=== PATIENT | male | born 1955 | race Caucasian/White ===

== ENCOUNTER 2021-10-29 18:08 | Observation (INO) | payer MEDICARE, OTHER ==
--- NOTE | 2021-10-29 18:38 | ED ---
General Adult HPI - General Stated complaint: chest pain Time Seen by Provider: 10/29/21 18:08 Source: patient, RN notes reviewed, old records reviewed - History of Present Illness Initial comments: This is a 66-year-old male who presents to the emergency department from [facility]. Patient states prior to going to [facility] he was shoveling his driveway started having some chest pain shortness of breath and he sat down and the pain did not go away so he called 911. Patient states he still has some chest pain currently. At [facility] did a full workup and started the patient heparin his troponin was negative his EKG did not show any significant past elevation or depression. Patient denies any recent fever chills or cough per patient denies being short of breath currently. Patient denies any abdominal pain patient denies nausea vomiting diarrhea. Patient denies lightheadedness or dizziness. - Related Data Home Medications Medication Instructions Recorded Confirmed ARIPiprazole [Abilify] 5 mg PO DAILY 10/29/21 10/29/21 Atorvastatin [Lipitor] 20 mg PO HS 10/29/21 10/29/21 Losartan Potassium 50 mg PO DAILY 10/29/21 10/29/21 Pioglitazone [Actos] 15 mg PO DAILY 10/29/21 10/29/21 Pramipexole [Mirapex] 0.5 mg PO TID 10/29/21 10/29/21 Propranolol HCl [Propranolol HCl 60 mg PO DAILY 10/29/21 10/29/21 ER] Sertraline [Zoloft] 100 mg PO DAILY 10/29/21 10/29/21 metFORMIN HCL 500 mg PO BID-W/MEALS 10/29/21 10/29/21 Allergies Allergy/AdvReac Type Severity Reaction Status Date / Time No Known Allergies Allergy Verified 10/29/21 18:51 Review of Systems ROS Statement: Those systems with pertinent positive or pertinent negative responses have been documented in the HPI. ROS Other: All systems not noted in ROS Statement are negative. General Exam - General Exam Comments Initial Comments: GENERAL: Patient is well-developed and well-nourished. Patient is nontoxic and well- hydrated and is in mild distress. ENT: Neck is soft and supple. No significant lymphadenopathy is noted. Oropharynx is clear. Moist mucous membranes. Neck has full range of motion without eliciting any pain. EYES: The sclera were anicteric and conjunctiva were pink and moist. Extraocular movements were intact and pupils were equal round and reactive to light. Eyelids were unremarkable. PULMONARY: Unlabored respirations. Good breath sounds bilaterally. No audible rales rhon chi or wheezing was noted. CARDIOVASCULAR: There is a regular rate and rhythm without any murmurs gallops or rubs. ABDOMEN: Soft and nontender with normal bowel sounds. SKIN: Skin is clear with no lesions or rashes and otherwise unremarkable. NEUROLOGIC: Patient is alert and oriented x3. Cranial nerves II through XII are grossly intact. Motor and sensory are also intact. Normal speech, volume and content. Symmetrical smile. MUSCULOSKELETAL: Normal extremities with adequate strength and full range of motion. LYMPHATICS: No significant lymphadenopathy is noted PSYCHIATRIC: Normal psychiatric evaluation. Course Vital Signs 10/29/21 18:22 Temperature 98.0 F Pulse Rate 64 Respiratory 18 Rate Blood Pressure 133/79 O2 Sat by Pulse 98 Oximetry Medical Decision Making - Medical Decision Making EKG shows normal sinus rhythm at 60 bpm MI interval 270 QRS 122 QT interval 4:30 QTC is 436 per patient's EKG shows no ST segment elevation or depression. Patient has a right bundle branch block. I reviewed the patient's paperwork and chest x-ray from [facility]. I also restarted the heparin here. I repeated troponin and an EKG EKG did not show any acute abnormalities. And troponin was normal. I spoke with Dr. Pringle he agreed to admit the patient admitted the patient I consult to cardiology. - Lab Data Lab Results 10/29/21 Range/Units 18:40 Troponin I <0.012 (0.000-0.034) ng/mL Disposition Clinical Impression: Chest pain Disposition: ADMITTED IP TO THIS HOSP Referrals: Ezekiel Ramirez MD [Primary Care Provider] - 1-2 days Time of Disposition: 19:31
[2021-10-29] MEDS ORDERED: HEPARIN SOD,PORK IN 0.45% NACL 25,000 UNIT in 0.45% NACL 1 250ML.BAG IV SCH (18:45)
[2021-10-29] MEDS ORDERED: NITROGLYCERIN SL TABS 0.4 MG TAB SUBLINGUAL PRN (19:31)
[2021-10-29] MEDS ORDERED: ACETAMINOPHEN TAB 325 MG TAB PO PRN (21:57)
[2021-10-29] MEDS ORDERED: LACTULOSE 20 GM/30 ML CUP PO PRN (21:57)
[2021-10-29] MEDS ORDERED: NALOXONE 0.4 MG/ML 1 ML VIAL IV PRN (21:57)
[2021-10-29] MEDS ORDERED: MELATONIN 3 MG TABLET PO PRN (22:00)
[2021-10-29] MEDS ORDERED: ATORVASTATIN 20 MG TAB PO SCH (22:00)
[2021-10-29] MEDS ORDERED: CALCIUM CARBONATE 500 MG CHEWABLE PO PRN (22:00)
[2021-10-29] MEDS ORDERED: ONDANSETRON 4 MG/2 ML VIAL IVP PRN (22:00)
[2021-10-29] MEDS: PRAMIPEXOLE 0.5 MG TAB PO SCH (23:35)
[2021-10-29] MEDS: NITROGLYCERIN OINT 1 INCH/GM PACKET TOPICAL SCH (23:36)
[2021-10-30] MEDS ORDERED: HEPARIN SODIUM 1,000 UN/ML (10ML VL) IV PRN (02:17)
[2021-10-30] MEDS: NITROGLYCERIN OINT 1 INCH/GM PACKET TOPICAL SCH ×2 (05:03→12:58)
[2021-10-30] MEDS ORDERED: HEPARIN SODIUM,PORCINE 10,000 UNIT in SODIUM CHLORIDE 0.9% 1,000 ML IRRIGATION PRN (07:00)
[2021-10-30] MEDS ORDERED: HEPARIN SODIUM,PORCINE 2,500 UNIT in SODIUM CHLORIDE 0.9% 250 ML IRRIGATION PRN (07:00)
[2021-10-30] MEDS ORDERED: metFORMIN 500 MG TAB PO SCH (07:30)
[2021-10-30 07:40] LABS: Glucose,Whole Blood 208 mg/dL (75-99)
[2021-10-30] MEDS ORDERED: ALPRAZolam 0.25 MG TAB PO PRN (08:58)
[2021-10-30] MEDS ORDERED: ATORVASTATIN 80 MG TAB PO STA (08:58)
[2021-10-30] MEDS ORDERED: ASPIRIN 325 MG TAB PO SCH (09:00)
--- NOTE | 2021-10-30 09:13 | P.CRDCN ---
History of Present Illness History of present illness: This is a 66 year old male with a past medical history of type 2 diabetes, hypertension, dyslipidemia, recent diagnosis of Parkinson's, alcohol abuse quit September 2019, former smoker. 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 Patient was transferred from [facility] due to concerns for chest pain. He states yesterday around 4PM he started shoveling the snow, he had acute onset of chest discomfort. Describes it as "pins and needles". It was aggravated by activity. Non-radiating. He states he had associated shortness of breath and lightheadedness. EMS was called. He states his pain lasted over an hour. He denies any diaphoresis, nausea, vomiting, syncope or loss of consciousness. He states he does occasionally get this chest pain with activity for sometime now. He denies any history of GA, CAD or stroke. He used to smoke cigarrettes quit 20+ years ago. He quit drinking September 2019 at that time prior he was drinking a fifth of whiskey a day. He denies any illicit drug use. He does not know his family history. At [facility], EKG revealed sinus rhythm, heart rate 73, right bundle-branch block. Labs reveal troponin negative, sodium 135, potassium 4.9, BUN 17, serum creatinine 1.0, WBC 7.6, hemoglobin 14.7, platelets 180. Chest x-ray report revealed no acute cardiopulmonary process. Patient was started on IV heparin and transferred to [facility] EKG reveals sinus rhythm, heart rate 62, right bundle-branch block. Repeat EKG this morning revealed sinus rhythm, heart rate 61, right bundle branch block, some ST depression in leads V2 and V3 Telemetry tracings indicate sinus mechanism, heart rates 6070s. Laboratory reviewed, troponin negative 3 Current home medications include Zoloft, atorvastatin 20 mg nightly, metformin, propanolol 60 mg daily, Actos 15mg daily, losartan 50 mg daily, Abilify 5 mg daily REVIEW OF SYSTEMS At the time of my exam: CONSTITUTIONAL: Denies fever or chills. CARDIOVASCULAR: Denies chest pain, shortness of breath, orthopnea, PND or palpitations. RESPIRATORY: Denies cough. GASTROINTESTINAL: Denies abdominal pain, diarrhea, constipation, nausea or vomiting. MUSCULOSKELETAL: Denies myalgias. NEUROLOGIC: Denies numbness, tingling, headache or weakness. ENDOCRINE: Denies fatigue, weight change, polydipsia or polyurina. GENITOURINARY: Denies burning, hematuria or urgency with micturation. HEMATOLOGIC: Denies history of anemia or bleeding. PHYSICAL EXAMINATION Blood pressure 155/79, heart rate 60, afebrile, saturations 98% on room air CONSTITUTIONAL: No apparent distress. HEENT: Head is normocephalic. Pupils are equal, round. Sclerae anicteric. Mucous membranes of the mouth are moist. No JVD. No carotid bruit. CHEST EXAMINATION: Lungs are clear to auscultation. No chest wall tenderness is noted on palpation or with deep breathing. HEART EXAMINATION: Regular rate and rhythm. S1, S2 heard. Systolic ejection murmur at apex. No gallops or rub. ABDOMEN: Soft, nontender. Positive bowel sounds. EXTREMITIES: 2+ peripheral pulses, no lower extremity edema and no calf tenderness. SKIN: warm, dry NEUROLOGIC EXAMINATION: Patient is awake, alert and oriented x3. ASSESSMENT Unstable angina Type 2 Diabetes Hypertension Dyslipidemia Recent diagnosis of Parkinson's History of alcohol abuse quit in September 2019 Former tobacco use PLAN -Recommend cardiac catheterization, patient is agreeable -I have discussed the risks, benefits and alternative therapies for the above- mentioned procedure and for both sedation/analgesia as well as necessary blood product administration, if indicated, as they pertain to this patient. The patient has indicated understanding and acceptance of the risks and procedures discussed. Questions have been answered appropriately and he is agreeable to move forward with the above-stated procedure. -Obtain 2D echocardiogram and doppler study to assess cardiac structure and function. -Lipid panel -Plan for cardiac catheterization with Dr. Cherry today. -Further recommendations based on clinical course Thank you kindly for this consultation. I have personally seen and examined the patient, performed the documentation and the assessment and plan as written. Number of minutes spent on the visit: [ ]. Past Medical History Past Medical History: Diabetes Mellitus, Hyperlipidemia History of Any Multi-Drug Resistant Organisms: None Reported Past Surgical History: Hernia Repair Past Anesthesia/Blood Transfusion Reactions: No Reported Reaction Past Psychological History: Anxiety, Depression, Schizophrenia Smoking Status: Former smoker Past Alcohol Use History: Daily Past Drug Use History: None Reported Medications and Allergies Home Medications Medication Instructions Recorded Confirmed Type ARIPiprazole [Abilify] 5 mg PO DAILY 10/29/21 10/29/21 History Atorvastatin [Lipitor] 20 mg PO HS 10/29/21 10/29/21 History Losartan Potassium 50 mg PO DAILY 10/29/21 10/29/21 History Pioglitazone [Actos] 15 mg PO DAILY 10/29/21 10/29/21 History Pramipexole [Mirapex] 0.5 mg PO TID 10/29/21 10/29/21 History Propranolol HCl [Propranolol HCl 60 mg PO DAILY 10/29/21 10/29/21 History ER] Sertraline [Zoloft] 100 mg PO DAILY 10/29/21 10/29/21 History metFORMIN HCL 500 mg PO BID-W/MEALS 10/29/21 10/29/21 History Allergies Allergy/AdvReac Type Severity Reaction Status Date / Time No Known Allergies Allergy Verified 10/29/21 18:51 Physical Exam Vitals: Vital Signs Temp Pulse Pulse Resp BP BP Pulse Ox 10/30/21 00:59 97.4 F L 72 18 143/80 96 10/29/21 20:16 97.7 F 64 20 146/78 100 10/29/21 19:55 72 18 123/84 95 10/29/21 18:22 98.0 F 64 18 133/79 98 Intake and Output 10/29/21 10/30/21 10/30/21 22:59 06:59 14:59 Intake Total 65.234 Balance 65.234 Intake: Intake, IV Titration 65.234 Amount Heparin Sod,Pork in 0.45% 65.234 NaCl 25,000 unit In 0.45 % NaCl 1 250ml.bag @ 12 UNITS/KG/HR 9.253 mls/hr IV .Q24H [facility] Rx#: [id number] Other: Voiding Method Toilet # Voids 1 1 Weight 77.111 kg Results Cardiac Enzymes 10/29/21 10/29/21 10/30/21 Range/Units 18:40 19:52 01:28 Troponin I <0.012 <0.012 <0.012 (0.000-0.034) ng/mL Coagulation 10/30/21 Range/Units 01:28 APTT 37.6 H (22.0-30.0) sec Current Medications Generic Name Dose Route Start Last Admin Trade Name Freq PRN Reason Stop Dose Admin Acetaminophen 650 mg 10/29/21 21:57 Acetaminophen Tab 325 Mg Tab PO Q6HR PRN Mild Pain or Fever > 100.5 Aripiprazole 5 mg 10/30/21 09:00 Aripiprazole 5 Mg Tab PO DAILY [facility] Aspirin 325 mg 10/30/21 09:00 Aspirin 325 Mg Tab PO DAILY [facility] Atorvastatin Calcium 20 mg 10/29/21 22:00 10/29/21 23:35 Atorvastatin 20 Mg Tab PO 20 mg HS [facility] Administration Calcium Carbonate/Glycine 1,000 mg 10/29/21 22:00 Calcium Carbonate 500 Mg Chewable PO Q4HR PRN Dyspepsia Heparin Sodium (Porcine) 0 unit 10/30/21 02:17 10/30/21 02:31 Heparin Sodium 1,000 Un/Ml (10ml Vl) IV 1,927 unit PER PROTOCOL PRN Administration Low PTT Protocol Heparin Sodium/Sodium Chloride 250 mls @ 9.253 mls/hr 10/29/21 18:45 03 02:32 25,000 unit/ Sodium Chloride IV 14 units/kg/hr .Q24H [facility] 10.796 mls/hr Titration Protocol 12 UNITS/KG/HR Lactulose 20 gm 10/29/21 21:57 Lactulose 20 Gm/30 Ml Cup PO DAILY PRN Constipation Losartan Potassium 50 mg 10/30/21 09:00 Losartan 50 Mg Tab PO DAILY [facility] Melatonin 3 mg 10/29/21 22:00 Melatonin 3 Mg Tablet PO HS PRN Insomnia Metformin HCl 500 mg 10/30/21 07:30 Metformin 500 Mg Tab PO BID-W/MEALS [facility] Naloxone HCl 0.2 mg 10/29/21 21:57 Naloxone 0.4 Mg/Ml 1 Ml Vial IV Q2M PRN Opioid Reversal Nitroglycerin 0.4 mg 10/29/21 19:31 Nitroglycerin Sl Tabs 0.4 Mg Tab SUBLINGUAL Q5M PRN Chest Pain Nitroglycerin 1 inch 10/30/21 00:00 10/30/21 05:03 Nitroglycerin Oint 1 Inch/Gm Packet TOPICAL Not Given Q6HR [facility] Ondansetron HCl 4 mg 10/29/21 22:00 Ondansetron 4 Mg/2 Ml Vial IVP Q8HR PRN Nausea And Vomiting Pioglitazone HCl 15 mg 10/30/21 09:00 Pioglitazone 15 Mg Tab PO DAILY [facility] Pramipexole Dihydrochloride 0.5 mg 10/29/21 22:00 10/29/21 23:35 Pramipexole 0.5 Mg Tab PO 0.5 mg TID [facility] Administration Propranolol HCl 60 mg 10/30/21 09:00 Propranolol La 60 Mg Cap.Sa.24h PO DAILY [facility] Sertraline HCl 100 mg 10/30/21 09:00 Sertraline 100 Mg Tab PO DAILY [facility] Intake and Output 10/29/21 10/30/21 10/30/21 22:59 06:59 14:59 Intake Total 65.234 Balance 65.234 Intake: Intake, IV Titration 65.234 Amount Heparin Sod,Pork in 0.45% 65.234 NaCl 25,000 unit In 0.45 % NaCl 1 250ml.bag @ 12 UNITS/KG/HR 9.253 mls/hr IV .Q24H [facility] Rx#: [id number] Other: Voiding Method Toilet # Voids 1 1 Weight 77.111 kg
[2021-10-30] MEDS: PRAMIPEXOLE 0.5 MG TAB PO SCH ×3 (09:45→20:42)
[2021-10-30] MEDS: SERTRALINE 100 MG TAB PO SCH (09:45)
[2021-10-30] MEDS: ARIPiprazole 5 MG TAB PO SCH (09:45)
[2021-10-30] MEDS: LOSARTAN 50 MG TAB PO SCH (09:45)
[2021-10-30] MEDS: PROPRANOLOL LA 60 MG CAP.SA.24H PO SCH (09:45)
[2021-10-30] MEDS: SODIUM CHLORIDE 0.9% 1,000 ML in EMPTY BAG 1 BAG IV SCH ×2 (09:46→17:00)
[2021-10-30 09:56] LABS: Glucose,Whole Blood 248 mg/dL (75-99)
[2021-10-30] MEDS ORDERED: IV FLUID CONTINUATION 1,000 ML IV ONE ×2 (10:19→12:06)
[2021-10-30] MEDS ORDERED: VERAPAMIL 2.5 MG/ML 2 ML AMP ONE (10:19)
[2021-10-30] MEDS ORDERED: LIDOCAINE 1% INJ 10MG/ML (20 ML MDV) ONE (10:19)
[2021-10-30] MEDS ORDERED: HEPARIN SODIUM 1,000 UN/ML (10ML VL) ONE (10:34)
[2021-10-30] MEDS ORDERED: fentaNYL (PF) 50 MCG/ML 2 ML AMP ONE (10:34)
[2021-10-30] MEDS ORDERED: LIDOCAINE 1% INJ 10MG/ML (20 ML MDV) SQ ONE (10:41)
[2021-10-30] MEDS ORDERED: fentaNYL (PF) 50 MCG/ML 2 ML AMP IV ONE (10:41)
[2021-10-30] MEDS: MIDAZOLAM 2 MG/2 ML VIAL IV ONE ×2 (10:41→10:46)
[2021-10-30] MEDS ORDERED: VERAPAMIL SYRINGE (5 MG/10 ML) INTRAARTER ONE ×2 (10:45→10:47)
[2021-10-30] MEDS: HEPARIN SODIUM 1,000 UN/ML (10ML VL) IV ONE ×4 (10:53→12:01)
[2021-10-30] MEDS ORDERED: PRASUGREL 10 MG TAB ONE (11:25)
[2021-10-30] MEDS ORDERED: PRASUGREL 10 MG TAB PO ONE (11:31)
--- NOTE | 2021-10-30 11:33 | CC ---
CARDIAC CATHETERIZATION REPORT INDICATION: Unstable angina. PROCEDURE NOTE: After obtaining informed consent, left heart catheterization and coronary angiogram were performed via the right radial artery using a size 3-1/2 Devika catheter for the right coronary artery and 3-1/2 and 4 Devika for the left coronary system. More selective images of the circumflex were obtained using a size 4 Devika catheter. The pigtail was used to obtain hemodynamics. Patient tolerated the procedure well without any obvious immediate complications. The right radial artery access was obtained using a micropuncture needle. Catheters and wires were floated into the ascending aorta under fluoroscopic guidance. Five mg of verapamil and 2000 units of heparin was given as per protocol. 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 Patient tolerated the procedure well without any obvious immediate complications. FINDINGS: HEMODYNAMICS: Left ventricular end-diastolic pressure is 12 mm. There is no significant gradient across the aortic valve. LEFT VENTRICULOGRAM: Left ventriculogram was not performed. ANGIOGRAPHIC DATA: Left main coronary artery. Left main coronary artery is a short vessel; appears mildly calcified but is free of significant stenosis. It divides into a large codominant circumflex coronary artery and LAD. LAD shows two areas of stenosis in the proximal portion. There is a 70% to 80% stenosis very close to the ostium, and further distally there is a focal 70% to 80% stenosis. Circumflex coronary artery shows a 40% to 50% stenosis in its mid portion. It gives off a high OM branch that is a small-caliber vessel and appears diffusely diseased. Right coronary artery probably has spasm involving the proximal and middle third but shows mild nonobstructive disease. CONCLUSIONS: 1. Focal significant stenosis involving the proximal one third of the LAD with two areas of segmental stenosis. 2. Moderate diffuse disease involving the high OM branch, a 40% to 50% stenosis involving the [place] circumference. 3. Mild nonobstructive disease involving the right coronary artery. PLAN: I am going to have Dr. Parekh review the angiographic data and advise on catheter- based revascularization of the LAD. MMBEBETOL / NORIN: [id number] /
[2021-10-30] MEDS ORDERED: NITROGLYCERIN 1000MCG/10ML SYRINGE INTRACORON ONE (11:35)
[2021-10-30] MEDS: NITROGLYCERIN 1000MCG/10ML SYRINGE INTRACORON ONE ×2 (12:01→12:17)
[2021-10-30] MEDS ORDERED: IOPAMIDOL-370 125ML BTL INJ ONE (12:02)
[2021-10-30] MEDS ORDERED: SODIUM CHLORIDE 0.9% 500 ML 500 ML IV ONE (12:06)
[2021-10-30] MEDS ORDERED: IOPAMIDOL-370 100ML BTL INJ ONE (12:23)
[2021-10-30] MEDS ORDERED: RX INFO: IV CONTRAST WAS GIVEN 1 EACH MISC MISCELLANE PRN (13:13)
[2021-10-30] MEDS ORDERED: MAG HYDROX/AL HYDROX/SIMETH 30 ML CUP PO PRN (13:13)
[2021-10-30] MEDS ORDERED: ATROPINE SULFATE 0.1 MG/ML 10ML SYRINGE IV PRN (13:13)
[2021-10-30] MEDS ORDERED: ZOLPIDEM 5 MG TAB PO PRN (13:13)
[2021-10-30] MEDS ORDERED: SODIUM CHLORIDE 0.9% 1,000 ML in EMPTY BAG 1 BAG IV SCH (13:15)
--- NOTE | 2021-10-30 14:00 | P.PRCINT ---
Percutaneous Coronary Int. - Percutaneous Coronary Intervention Percutaneous Coronary Intervention: PROCEDURES PERFORMED: Left coronary angiography, PCI proximal LAD with overlapping 3.0 x 18mm and 2.75 x 12mm Xience DONNA, iFR LAD, iFR circumflex INDICATION: Chest pain concerning for unstable angina HISTORY: Patient is a pleasant 66 year old male with DM2, prior tobacco abuse and alcohol abuse. He has been having new onset chest pain concerning for unstable angina and therefore diagnostic heart catheterization was performed which showed obstructive disease of the LAD and moderate disease of the circumflex. I was asked to evaluate for PCI. PROCEDURE: After the risks, benefits and alternatives of the above mentioned procedure explained in detail with the patient, informed consent was obtained. Patient had been taken to the catheterization lab and prepped and draped in usual fashion. A right radial sheath had already been placed. A 6Fr CLS 3.0 guide was used to engage the left main. Heparin was given for ACT > 250. The decision was made to perform iFR of both the LAD and circumflex. Prior diagnsotic images the 5Fr catheter was deep seated and possible component of spasm. A 0.014 BMW wire was placed in the distal LAD and a second 0.014 BMW wire was advanced into the circumflex allowing for better seating of the guide. Nitro was given without much change of the lesions. A 0.014 pressure wire was advanced and normalized. This was advanced into the mid circumflex and was noted to be normal at 0.97. Next the pressure wire was redirected into the mid to distal LAD and was noted to be abnormal at 0.78. The decision was made to perform PCI of the proximal LAD. Predilation was performed with a 2.25 x 12mm balloon. A 2.75 x 12mm Xience DONNA was advanced into the more distal lesion and deployed. Next a 3.0 x 18mm Xience DONNA was placed at the origin of the LAD and deployed, overlapping with the more distal stent. The overlap was post dilated with the 3.0 balloon. The wire was pulled and final angiograms were performed. Pre intervention there was tandem 70% and 80% stenoses and [place] 3 flow and post intervention there was <10% stenosis with [place] 3 flow and no dissection noted. The guide was removed. The right radial sheath was removed and a TR band was placed with hemostasis achieved. The patient tolerated the procedure well. Patient was transported back to the post catheterization holding area in stable condition. Conscious Sedation: Patient was monitored under the direct supervision of vision of myself for conscious sedation using Versed and fentanyl for a total duration of 59 minutes SELECTIVE CORONARY ARTERIOGRAPHY: LEFT MAIN: The left main is large caliber, short vessel with no significant stenosis. It trifurcates into the LAD, a small caliber ramus and circumflex. LEFT ANTERIOR DESCENDING CORONARY ARTERY: The LAD is large caliber and wraps a round to the apex. There are tandem 70% proximal and 80% proximal LAD stenoses. Otherwise there is a mid LAD 30-40% lesion and mild luminal irregularities. RAMUS INTERMEDIUS: The ramus is a small caliber vessel with proximal 40% stenosis. LEFT CIRCUMFLEX CORONARY ARTERY: The left circumflex is large caliber and supplies the PDA and is the dominant vessel. There is a mid circumflex 60-70% stenosis. At this level there is a small caliber OM1 which has a proximal 90% stenosis. RIGHT CORONARY ARTERY: The right coronary artery was not imaged however known to be small caliber and nondominant with diffuse mild to moderate disease. FINAL IMPRESSION: 1. CAD as described above s/p PCI proximal LAD with overlapping 3.0 x 18mm and 2.75 x 12mm Xience DONNA 2. Residual mid circumflex 60-70% stenosis (iFR normal) and 90% small caliber OM1 disease. PLAN: 1. Aggressive risk factor modification per most recent ACC/AHA guidelines. 2. Continue dual antiplatelets for 12 months. 3. Would treat circumflex and OM1 disease medically unless patient has recurrent angina.
[2021-10-30] MEDS: ALPRAZolam 0.5 MG TAB PO PRN ×2 (14:02→20:43)
[2021-10-30 14:57] VITALS: BMI 25.1
--- NOTE | 2021-10-30 15:13 | XR ---
EXAMINATION TYPE: XR chest 2V DATE OF EXAM: 10/30/2021 COMPARISON: 09/19/2010 HISTORY: 66-year-old male with chest pain, heart catheter today. TECHNIQUE: Frontal and lateral views FINDINGS: Heart normal size. Mild hazy lower lung densities likely areas of atelectasis. No pneumothorax. No co nsolidation in the upper and mid lungs. No pleural effusion. IMPRESSION: Some hazy density in the lower lungs likely areas of atelectasis. Follow-up as clinically indicated.
[2021-10-30 15:46] LABS: LDL Cholesterol,Calculated 82.7 mg/dL (0.0-131.0)
--- NOTE | 2021-10-30 16:13 | P.HPIM ---
History of Present Illness H&P Date: 10/30/21 Chief Complaint: Chest pain This is a pleasant 66-year-old patient, was chronic stable medical conditions include diabetes mellitus, hyperlipidemia, Parkinson's., Schizophrenia, anxiety depression. Patient at the baseline is unsteady on his gait. Has to hold onto things. Yesterday around 3 PM patient developed pain across the chest. When he was shoveling snow. It became more prominent. There was no perspiration. Slight dizziness. Some shortness of breath. No radiation. Patient called EMS and after about 3 years when he got the nitroglycerin symptoms went away. Troponins were negative. Patient this morning underwent cardiac catheterization diagnostic by Dr. Juancarlos Valentino followed by angioplasty stenting to proximal LAD with a DONNA. Patient also admits circumflex 60-70% stenosis the latter which is to be treated medically. Postprocedure no chest pain just tired. Review of systems: GEN.: Tired EYES: None HEENT: None NECK: None RESPIRATORY: None CARDIOVASCULAR: As above GASTROINTESTINAL: None GENITOURINARY: None MUSCULOSKELETAL: None LYMPHATICS: None HEMATOLOGICAL: None PSYCHIATRY: Anxious NEUROLOGICAL: Baseline unsteady gait and some tremors Past medical history to include: Diabetes, hyperlipidemia, anxiety, depression, schizophrenia, Parkinson's Social history: Lives alone. Retired from [employer]. No history of smoking or alcohol. Family history: Reviewed, noncontributory to presentation Physical examination: VITAL SIGNS: 97.6, 60, 18, 155/79, 98% room air GENERAL: BMI 25.1, laying in bed, awake, comfortable. EYES: Pupils equal. Conjunctiva normal. HEENT: External appearance of nose and ears normal, oral cavity grossly normal. NECK: JVD not raised; masses not palpable. HEART: First and second heart sounds are normal; no edema. LUNGS: Respiratory rate normal; clear to auscultation. ABDOMEN: Soft, nontender, liver spleen not palpable, no masses palpable. PSYCH: Alert and oriented x3; mood and affect anxiousl. MUSCULOSKELETAL:No Clubbing/cyanosis;muscles-grossly intact NEUROLOGICAL: Cranial nerves grossly intact; no facial asymmetry, power and sensation grossly intact. LYMPHATICS: No lymph nodes palpable in the axilla and neck INVESTIGATIONS, reviewed in the clinical context: Troponin I 3 negative LDL 82.7 triglycerides 371 EKG tracing personally reviewed by me-normal sinus rhythm. Right bundle branch block Chest x-ray film personally reviewed by me-some haziness/chronic infiltrative basis Assessment and plan: -Unstable angina in a patient with cardiac risk factors included diabetes, hyperlipidemia. Troponins were negative. Patient underwent cardiac catheterization Was given aspirin. -CAD with stent to LAD Patient has a 60-70% lesion to mid circumflex. Normal iFR Aspirin, Lipitor, Effient -IV heparin monitoring Follow PTT -Hyperlipidemia Lipitor 20 mg daily at bedtime -Diabetes mellitus type 2 Actos 50 mg daily. Hold metformin. Accu-Cheks and sliding scale insulin -Idiopathic Parkinson's disease Mirapex 0.5 mg by mouth 3 times a day -Schizophrenia Abilify 5 mg a day -Depression not otherwise specified Zoloft 100 mg daily Aspirin, Effient. Home medications resumed. IV heparin. Telemetry. Care was discussed with the patient. Follow with cardiology Past Medical History Past Medical History: Diabetes Mellitus, Hyperlipidemia History of Any Multi-Drug Resistant Organisms: None Reported Past Surgical History: Hernia Repair Past Anesthesia/Blood Transfusion Reactions: No Reported Reaction Past Psychological History: Anxiety, Depression, Schizophrenia Smoking Status: Former smoker Past Alcohol Use History: Daily Past Drug Use History: None Reported Medications and Allergies Home Medications Medication Instructions Recorded Confirmed Type ARIPiprazole [Abilify] 5 mg PO DAILY 10/29/21 10/29/21 History Atorvastatin [Lipitor] 20 mg PO HS 10/29/21 10/29/21 History Losartan Potassium 50 mg PO DAILY 10/29/21 10/29/21 History Pioglitazone [Actos] 15 mg PO DAILY 10/29/21 10/29/21 History Pramipexole [Mirapex] 0.5 mg PO TID 10/29/21 10/29/21 History Propranolol HCl [Propranolol HCl 60 mg PO DAILY 10/29/21 10/29/21 History ER] Sertraline [Zoloft] 100 mg PO DAILY 10/29/21 10/29/21 History metFORMIN HCL 500 mg PO BID-W/MEALS 10/29/21 10/29/21 History Allergies Allergy/AdvReac Type Severity Reaction Status Date / Time No Known Allergies Allergy Verified 10/29/21 18:51 Physical Exam Vitals: Vital Signs Temp Pulse Pulse Resp BP BP Pulse Ox 10/30/21 07:00 97.6 F 60 18 155/79 98 10/30/21 00:59 97.4 F L 72 18 143/80 96 10/29/21 20:16 97.7 F 64 20 146/78 100 10/29/21 19:55 72 18 123/84 95 10/29/21 18:22 98.0 F 64 18 133/79 98 Intake and Output 10/29/21 10/30/21 10/30/21 22:59 06:59 14:59 Intake Total 65.234 Balance 65.234 Intake: Intake, IV Titration 65.234 Amount Heparin Sod,Pork in 0.45% 65.234 NaCl 25,000 unit In 0.45 % NaCl 1 250ml.bag @ 12 UNITS/KG/HR 9.253 mls/hr IV .Q24H [facility] Rx#: [id number] Other: Voiding Method Toilet Toilet # Voids 1 1 Weight 77.111 kg Results Labs: Abnormal Lab Results - Last 24 Hours (Table) 10/30/21 10/30/21 10/30/21 Range/Units 01:28 07:38 07:56 APTT 37.6 H 55.9 H (22.0-30.0) sec POC Glucose (mg/dL) 208 H (75-99) mg/dL 10/30/21 Range/Units 09:54 APTT (22.0-30.0) sec POC Glucose (mg/dL) 248 H (75-99) mg/dL
[2021-10-30] MEDS: PIOGLITAZONE 15 MG TAB PO SCH (17:00)
[2021-10-30 17:05] LABS: Glucose,Whole Blood 243 mg/dL (75-99)
[2021-10-30] MEDS: INSULIN ASPART (NovoLOG) 100 UNIT/ML VIAL SQ SCH ×2 (17:37→20:38)
[2021-10-30 20:27] LABS: Glucose,Whole Blood 224 mg/dL (75-99)
[2021-10-31 07:27] VITALS: BP 146/74; PULSE 54; RESP 16; TEMP 97.8
[2021-10-31 07:29] LABS: Glucose,Whole Blood 186 mg/dL (75-99)
[2021-10-31 07:45] LABS: Basophils % (A) 0 %; Eosinophils # (A) 0.9 k/uL (0-0.7); Eosinophils % (A) 16 %; HCT 39.7 % (39.0-53.0); HGB 13.5 gm/dL (13.0-17.5); Lymphocytes % (A) 18 %; MCH 30.4 pg (25.0-35.0); MCHC 34.1 g/dL (31.0-37.0); MCV 89.2 fL (80.0-100.0); Mean Platelet Volume 7.7; Monocytes # (A) 0.2 k/uL (0-1.0); Monocytes % (A) 4 %; Neutrophils # (A) 3.3 k/uL (1.3-7.7); Neutrophils % (A) 60 %; Platelet Count 151 k/uL (150-450); RBC 4.46 m/uL (4.30-5.90); RDW 14.7 % (11.5-15.5); WBC 5.5 k/uL (3.8-10.6)
[2021-10-31 07:59] LABS: African American GFR (CKD) >90 (>60 ml/min/1.73 sqM); Anion Gap 6 mmol/L; Blood Urea Nitrogen 21 mg/dL (9-20); Calcium 8.5 mg/dL (8.4-10.2); Carbon Dioxide 20 mmol/L (22-30); Chloride 110 mmol/L (98-107); Glucose 177 mg/dL (74-99); Non-African American GFR(CKD) 86 (>60 ml/min/1.73 sqM); Sodium 136 mmol/L (137-145)
[2021-10-31] MEDS: INSULIN ASPART (NovoLOG) 100 UNIT/ML VIAL SQ SCH (08:18)
[2021-10-31] MEDS: ARIPiprazole 5 MG TAB PO SCH (08:18)
[2021-10-31] MEDS: PRAMIPEXOLE 0.5 MG TAB PO SCH (08:18)
[2021-10-31] MEDS: SERTRALINE 100 MG TAB PO SCH (08:18)
[2021-10-31] MEDS: PROPRANOLOL LA 60 MG CAP.SA.24H PO SCH (08:18)
[2021-10-31] MEDS: LOSARTAN 50 MG TAB PO SCH (08:18)
[2021-10-31] MEDS: PIOGLITAZONE 15 MG TAB PO SCH (08:18)
[2021-10-31] MEDS ORDERED: PRASUGREL 10 MG TAB PO SCH (09:00)
[2021-10-31] MEDS ORDERED: ASPIRIN 81 MG PO SCH (09:00)
--- NOTE | 2021-10-31 09:24 | P.PN ---
Subjective This is a 66 year old male with a past medical history of type 2 diabetes, hypertension, dyslipidemia, recent diagnosis of Parkinson's, alcohol abuse quit September 2019, former smoker. 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 Patient was transferred from [facility] due to concerns for chest pain. He states yesterday around 4PM he started shoveling the snow, he had acute onset of chest discomfort. At [facility], EKG revealed sinus rhythm, heart rate 73, right bundle-branch block. Labs reveal troponin negative, sodium 135, potassium 4.9, BUN 17, serum creatinine 1.0, WBC 7.6, hemoglobin 14.7, platelets 180. Chest x- ray report revealed no acute cardiopulmonary process. Patient was started on IV heparin and transferred to [facility] for unstable angina. Cardiac catheterization was recommended. 10/30/2021 Patient underwent cardiac catheterization with Dr. Cherry which revealed LAD with 2 areas of stenosis in the proximal portion. 7080 percent stenosis very close to the ostium, and further distally there was a focal 7080 percent stenosis. Circumflex coronary artery shows a 4050 percent stenosis in the midportion. Patient underwent successful PCI to the proximal LAD with Dr. Parekh. 10/31/21: Patient seen and examined at bedside, no acute distress. Denies any chest pain or shortness of breath. EKG this morning reveals sinus rhythm, heart rate 60, right bundle-branch block, no acute changes. Vital signs are stable. Labs reviewed, WBC 5.5, hemoglobin 13.5, platelets 151, sodium 136, potassium 4.0, BUN 21, serum creatinine 0.9 Patient is currently maintained on aspirin 81 mg daily, Effient 10 mg daily, atorvastatin 80 mg daily, losartan 50 mg daily, propranolol 60 mg daily Echocardiogram revealed normal left ventricular systolic function 5560% PHYSICAL EXAMINATION Blood pressure 146/74, heart rate 54, afebrile, oxygen saturation is greater than 92% on room air CONSTITUTIONAL: No apparent distress. HEENT: Neck supple No JVD. CHEST EXAMINATION: Lungs are clear to auscultation. No chest wall tenderness is noted on palpation or with deep breathing. HEART EXAMINATION: Regular rate and rhythm. S1, S2 heard. Systolic ejection murmur at apex. No gallops or rub. ABDOMEN: Soft, nontender. Positive bowel sounds. EXTREMITIES: 2+ peripheral pulses, no lower extremity edema SKIN: warm, dry Right wrist cath site, clean, dry, intact, 2+ peripheral pulses, no hematoma NEUROLOGIC EXAMINATION: Patient is awake, alert and oriented x3. ASSESSMENT Unstable angina Status post cardiac catheterization with PCI to the proximal LAD in 10/30/2021 Type 2 Diabetes Hypertension Dyslipidemia Recent diagnosis of Parkinson's History of alcohol abuse quit in September 2019 Former tobacco use PLAN Continue dual antiplatelet therapy with aspirin and Effient Continue statin, losartan and propanolol From a cardiology perspective, patient stable to be discharged home today. Follow up with Dr. Cherry in the office on Wednesday11/05/2021 Nurse practitioner note has been reviewed by physician. Signing provider agrees with the documented findings, assessment, and plan of care. Objective - Vital Signs Vital signs: Vital Signs Temp 97.8 F 10/31/21 07:23 Pulse 54 L 10/31/21 07:23 Resp 16 10/31/21 07:23 BP 146/74 10/31/21 07:23 Pulse Ox 95 10/31/21 07:23 Intake & Output 10/30/21 10/31/21 10/31/21 18:59 06:59 18:59 Intake Total 700 Output Total 200 500 Balance 500 -500 Weight 77.111 kg Intake: IV 700 Output: Urine 200 500 Other: Voiding Method Toilet Toilet # Voids 2 - Labs CBC & Chem 7: 10/31/21 07:12 10/31/21 07:12 Labs: Abnormal Lab Results - Last 24 Hours (Table) 10/30/21 10/30/21 10/30/21 Range/Units 07:56 09:54 17:03 Eosinophils # (0-0.7) k/uL Sodium (137-145) mmol/L Chloride (98-107) mmol/L Carbon Dioxide (22-30) mmol/L BUN (9-20) mg/dL Glucose (74-99) mg/dL POC Glucose (mg/dL) 248 H 243 H (75-99) mg/dL Triglycerides 371.00 H (0.00-149.00) mg/dL VLDL Cholesterol, Calc 74.20 H (5.00-40.00) mg/dL HDL Cholesterol 34.10 L (40.00-60.00) mg/dL 10/30/21 10/31/21 10/31/21 Range/Units 20:25 07:12 07:12 Eosinophils # 0.9 H (0-0.7) k/uL Sodium 136 L (137-145) mmol/L Chloride 110 H (98-107) mmol/L Carbon Dioxide 20 L (22-30) mmol/L BUN 21 H (9-20) mg/dL Glucose 177 H (74-99) mg/dL POC Glucose (mg/dL) 224 H (75-99) mg/dL Triglycerides (0.00-149.00) mg/dL VLDL Cholesterol, Calc (5.00-40.00) mg/dL HDL Cholesterol (40.00-60.00) mg/dL 10/31/21 Range/Units 07:28 Eosinophils # (0-0.7) k/uL Sodium (137-145) mmol/L Chloride (98-107) mmol/L Carbon Dioxide (22-30) mmol/L BUN (9-20) mg/dL Glucose (74-99) mg/dL POC Glucose (mg/dL) 186 H (75-99) mg/dL Triglycerides (0.00-149.00) mg/dL VLDL Cholesterol, Calc (5.00-40.00) mg/dL HDL Cholesterol (40.00-60.00) mg/dL
[2021-10-31] MEDS ORDERED: ATORVASTATIN 80 MG TAB PO SCH (22:00)
[2021-10-31] MEDS ORDERED: ATORVASTATIN 20 MG TAB PO SCH (22:00)
--- NOTE | 2021-11-01 18:13 | P.DS ---
Providers Date of admission: 10/29/21 19:31 Expected date of discharge: 10/31/21 Attending physician: Jamal Pringle Consults: 10/29/21 19:31 Consult Physician Urgent Consulting Provider: Rachel Barnes Consult Reason/Comments: Unstable angina Do you want consulting provider notified?: Yes 10/30/21 13:13 Consult Physician Routine Consulting Provider: Rachel Barnes Consult Reason/Comments: Post Interventional patient Do you want consulting provider notified?: Already Contacted Primary care physician: [facility]: Chief Complaint: Chest pain This is a pleasant 66-year-old patient, was chronic stable medical conditions include diabetes mellitus, hyperlipidemia, Parkinson's., Schizophrenia, anxiety depression. Patient at the baseline is unsteady on his gait. Has to hold onto things. Yesterday around 3 PM patient developed pain across the chest. When he was shoveling snow. It became more prominent. There was no perspiration. Slight dizziness. Some shortness of breath. No radiation. Patient called EMS and after about 3 years when he got the nitroglycerin symptoms went away. Troponins were negative. Patient this morning underwent cardiac catheterization diagnostic by Dr. Juancarlos Valentino followed by angioplasty stenting to proximal LAD with a DONNA. Patient also admits circumflex 60-70% stenosis the latter which is to be treated medically. Postprocedure no chest pain just tired. October 31: Stable. No chest pain or shortness of breath. Cleared by cardiology for discharge. Patient will follow-up with Dr. Valentino cardiology in his office. Discussed with patient. Past medical history to include: Diabetes, hyperlipidemia, anxiety, depression, schizophrenia, Parkinson's Social history: Lives alone. Retired from [employer]. No history of smoking or alcohol. Family history: Reviewed, noncontributory to presentation Physical examination: VITAL SIGNS: 97.8, 54, 16, 146/74, 95% room air GENERAL: Sitting up comfortable comfortable. EYES: Pupils equal. Conjunctiva normal. HEENT: External appearance of nose and ears normal, oral cavity grossly normal. NECK: JVD not raised; masses not palpable. HEART: First and second heart sounds are normal; no edema. LUNGS: Respiratory rate normal; clear to auscultation. ABDOMEN: Soft, nontender, liver spleen not palpable, no masses palpable. PSYCH: Alert and oriented x3; mood and affect anxiousl. MUSCULOSKELETAL:No Clubbing/cyanosis;muscles-grossly intact INVESTIGATIONS, reviewed in the clinical context: October 31: White count 5.5 hemoglobin 13.5 potassium 4 creatinine 0.9 to Troponin I 3 negative LDL 82.7 triglycerides 371 EKG tracing personally reviewed by me-normal sinus rhythm. Right bundle branch block Chest x-ray film personally reviewed by me-some haziness/chronic infiltrative basis Assessment and plan: -Unstable angina in a patient with cardiac risk factors included diabetes, hyperlipidemia. Troponins were negative. Patient underwent cardiac catheterization Was given aspirin. -CAD with stent to LAD Patient has a 60-70% lesion to mid circumflex. Normal iFR Aspirin, Lipitor, Effient -IV heparin monitoring: Discontinued Follow PTT -Hyperlipidemia Lipitor 80 mg daily at bedtime -Diabetes mellitus type 2 Actos 50 mg daily. metformin. Accu-Cheks and sliding scale insulin -Idiopathic Parkinson's disease Mirapex 0.5 mg by mouth 3 times a day -Schizophrenia Abilify 5 mg a day -Depression not otherwise specified Zoloft 100 mg daily Disposition: Home Plan - Discharge Summary Discharge Rx Participant: No New Discharge Prescriptions: New Metoprolol Tartrate [Lopressor] 25 mg PO BID #60 tablet Prasugrel [Effient] 10 mg PO DAILY 30 Days #30 tab Aspirin 81 mg PO DAILY 30 Days #30 tab Atorvastatin [Lipitor] 80 mg PO Q24H 30 Days #30 tab Nitroglycerin Sl Tabs [Nitrostat] 0.4 mg SUBLINGUAL Q5M PRN #30 tab PRN Reason: Chest Pain Continue metFORMIN HCL 500 mg PO BID-W/MEALS ARIPiprazole [Abilify] 5 mg PO DAILY Sertraline [Zoloft] 100 mg PO DAILY Pramipexole [Mirapex] 0.5 mg PO TID Pioglitazone [Actos] 15 mg PO DAILY Losartan Potassium 50 mg PO DAILY Discontinued Atorvastatin [Lipitor] 20 mg PO HS Propranolol HCl [Propranolol HCl ER] 60 mg PO DAILY Discharge Medication List ARIPiprazole [Abilify] 5 mg PO DAILY 10/29/21 [History] Losartan Potassium 50 mg PO DAILY 10/29/21 [History] Pioglitazone [Actos] 15 mg PO DAILY 10/29/21 [History] Pramipexole [Mirapex] 0.5 mg PO TID 10/29/21 [History] Sertraline [Zoloft] 100 mg PO DAILY 10/29/21 [History] metFORMIN HCL 500 mg PO BID-W/MEALS 10/29/21 [History] Aspirin 81 mg PO DAILY 30 Days #30 tab 10/31/21 [Rx] Atorvastatin [Lipitor] 80 mg PO Q24H 30 Days #30 tab 10/31/21 [Rx] Metoprolol Tartrate [Lopressor] 25 mg PO BID #60 tablet 10/31/21 [Rx] Nitroglycerin Sl Tabs [Nitrostat] 0.4 mg SUBLINGUAL Q5M PRN #30 tab 10/31/21 [Rx] Prasugrel [Effient] 10 mg PO DAILY 30 Days #30 tab 10/31/21 [Rx] Follow up Appointment(s)/Referral(s): Ezekiel Ramirez MD [Primary Care Provider] - 1-2 days Lior Cherry MD [STAFF PHYSICIAN] - 11/05/21 9:00 am Patient Instructions/Handouts: *Surgery [facility] - After Heart Catheterization - Engineering Team Supervisor Instructions Discharge Disposition: HOME SELF-CARE
== END 2021-10-31 13:02 | disposition home or self-care (01) ==
LOC: EC 18:08 → 6NMEDSUR 19:31
PROVIDERS: ADMIT Hospitalist; ATTEND Hospitalist
DX: I25.110 Atherosclerotic heart disease of native coronary artery with unstable angina pectoris (principal); I25.84 Coronary atherosclerosis due to calcified coronary lesion; E78.5 Hyperlipidemia, unspecified; I10 Essential (primary) hypertension; I45.10 Unspecified right bundle-branch block; E11.9 Type 2 diabetes mellitus without complications; G20 Parkinson's disease; F02.80 Dementia in other diseases classified elsewhere, unspecified severity, without behavioral disturbance, psychotic disturbance, mood disturbance, and anxiety; F20.9 Schizophrenia, unspecified; F32.A Depression, unspecified; F41.9 Anxiety disorder, unspecified; Z79.02 Long term (current) use of antithrombotics/antiplatelets; Z79.84 Long term (current) use of oral hypoglycemic drugs; Z79.899 Other long term (current) drug therapy; Z87.891 Personal history of nicotine dependence; Z95.5 Presence of coronary angioplasty implant and graft
CPT/HCPCS: 93458; 99285; 96376; 96366 ×2; 96365; 36415; 93005; 93306; 93571; 93572; 80061; 80048; 84484 ×2; 85025; 85730; 71046; G0378 ×3; C9600; C1769 ×2; C1887; C1894; C1725; C1874 ×2; J2250; J2001; J3010; J1644 ×2; Q9967 ×2

== ENCOUNTER 2021-11-11 12:18 | Observation (INO) | payer MEDICARE, OTHER ==
[2021-11-11] MEDS ORDERED: MORPHINE SULFATE 4 MG/ML SYRINGE IV STA (12:57)
[2021-11-11] MEDS ORDERED: SODIUM CHLORIDE 0.9% 1,000 ML IV STA (12:58)
[2021-11-11 13:12] LABS: Basophils # (A) 0.1 k/uL (0-0.2); Basophils % (A) 1 %; Eosinophils # (A) 0.6 k/uL (0-0.7); Eosinophils % (A) 10 %; HCT 42.3 % (39.0-53.0); HGB 14.1 gm/dL (13.0-17.5); Lymphocytes # (A) 1.3 k/uL (1.0-4.8); Lymphocytes % (A) 20 %; MCH 29.4 pg (25.0-35.0); MCHC 33.3 g/dL (31.0-37.0); MCV 88.4 fL (80.0-100.0); Mean Platelet Volume 7.8; Monocytes # (A) 0.3 k/uL (0-1.0); Monocytes % (A) 5 %; Neutrophils # (A) 4.1 k/uL (1.3-7.7); Neutrophils % (A) 63 %; Platelet Count 201 k/uL (150-450); RBC 4.78 m/uL (4.30-5.90); RDW 13.9 % (11.5-15.5); WBC 6.5 k/uL (3.8-10.6)
[2021-11-11 13:35] LABS: ALT 26 U/L (4-49); AST 27 U/L (17-59); African American GFR (CKD) >90 (>60 ml/min/1.73 sqM); Alkaline Phosphatase 98 U/L (38-126); Anion Gap 11 mmol/L; Blood Urea Nitrogen 27 mg/dL (9-20); Calcium 9.1 mg/dL (8.4-10.2); Carbon Dioxide 20 mmol/L (22-30); Chloride 106 mmol/L (98-107); Glucose 245 mg/dL (74-99); Magnesium 1.7 mg/dL (1.6-2.3); Non-African American GFR(CKD) 89 (>60 ml/min/1.73 sqM); Potassium 4.6 mmol/L (3.5-5.1); Sodium 137 mmol/L (137-145); Total Bilirubin 0.6 mg/dL (0.2-1.3); Total Protein 6.9 g/dL (6.3-8.2)
[2021-11-11 13:41] LABS: Prothrombin Time 10.6 sec (9.0-12.0)
--- NOTE | 2021-11-11 13:44 | ED ---
General Adult HPI - General Chief complaint: Chest Pain Stated complaint: chest pain Time Seen by Provider: 11/11/21 12:37 Source: patient, EMS, RN notes reviewed, old records reviewed Mode of arrival: EMS Limitations: no limitations - History of Present Illness Initial comments: Patient is a 66-year-old male with past medical history remarkable for recent cardiac cath with 2 stents, prior alcohol abuse, diabetes who presents complaining of shortness of breath and substernal chest pressure onset approximately 2 hours are to arrival. He states he to walk a significant distance because his car broke down to the store and back. He states symptoms s tarted after this. States the pressure is improved at this time. EMS did provide aspirin as well as a nitro. Symptoms are improved at this time, currently a 2 out of 10 when earlier they were approximately an 8 out of 10. Denies any smoking, drugs, current alcohol use. Denies any nausea, vomiting, lightheadedness, headaches. Denies any blurry vision. His no other acute complaints at this time. Presents over concern for his chest pressure sensation as well as his shortness of breath. States he was vaccinated for Covid. Denies any cough, fevers, sick contacts. His no known history of blood clots. Is not on blood thinners. I evaluated the patient when he was placed in a room. - Related Data Home Medications Medication Instructions Recorded Confirmed ARIPiprazole [Abilify] 5 mg PO DAILY 10/29/21 11/11/21 Losartan Potassium 50 mg PO DAILY 10/29/21 11/11/21 Pioglitazone [Actos] 15 mg PO DAILY 10/29/21 11/11/21 Pramipexole [Mirapex] 0.5 mg PO TID 10/29/21 11/11/21 Sertraline [Zoloft] 100 mg PO DAILY 10/29/21 11/11/21 metFORMIN HCL 500 mg PO BID-W/MEALS 10/29/21 11/11/21 Atorvastatin [Lipitor] 80 mg PO DAILY 11/11/21 11/11/21 Previous Rx's Medication Instructions Recorded Aspirin 81 mg PO DAILY 30 Days #30 tab 10/31/21 Metoprolol Tartrate [Lopressor] 25 mg PO BID #60 tablet 10/31/21 Nitroglycerin Sl Tabs [Nitrostat] 0.4 mg SUBLINGUAL Q5M PRN #30 tab 10/31/21 Prasugrel [Effient] 10 mg PO DAILY 30 Days #30 tab 10/31/21 Allergies Allergy/AdvReac Type Severity Reaction Status Date / Time No Known Allergies Allergy Verified 11/11/21 13:56 Review of Systems ROS Statement: Those systems with pertinent positive or pertinent negative responses have been documented in the HPI. Review of Systems: CONST: Denies fever EYES: Denies blurry vision ENT: Denies nasal congestion C/V: Endorses chest pain RESP: Endorses improving shortness of breath GI: Denies abdominal pain : Denies dysuria SKIN: Denies rash. MSK: Denies joint pain. NEURO: Denies headache ROS Other: All systems not noted in ROS Statement are negative. Past Medical History Past Medical History: Diabetes Mellitus, Hyperlipidemia History of Any Multi-Drug Resistant Organisms: None Reported Past Surgical History: Heart Catheterization With Stent, Hernia Repair Past Anesthesia/Blood Transfusion Reactions: No Reported Reaction Past Psychological History: Anxiety, Depression, Schizophrenia Smoking Status: Former smoker Past Alcohol Use History: Daily Past Drug Use History: None Reported General Exam - General Exam Comments Initial Comments: General: Appears in no acute distress. HEAD: Normal with no signs of head trauma. EYES: PERRLA, EOMI, conjunctiva normal, no discharge. ENT: Hearing grossly intact, normal oropharynx. RESPIRATORY: Clear breath sounds bilaterally. No wheezes, rales, or rhonchi. C/V: Regular rate and rhythm. S1 and S2 auscultated, no edema, peripheral pulses 2+ and intact throughout ABD: Abd is soft, nontender, nondistended EXT: Normal range of motion, no obvious deformity SKIN: No rashes or lesions observed on exposed skin. NEURO: Alert and oriented 4. No focal deficits. Limitations: no limitations Course Vital Signs 11/11/21 11/11/21 12:38 17:00 Temperature 97.8 F 97.9 F Pulse Rate 60 53 L Respiratory 18 18 Rate Blood Pressure 135/66 158/63 O2 Sat by Pulse 98 98 Oximetry Medical Decision Making - Medical Decision Making Based on the patient's presentation and physical exam, I'm concerned for acute cardio pulmonary etiology for his current symptoms. We will obtain a cardiac workup. D-dimer also be obtained, as well as scores low for PE. He was in agreement this plan. Patient already received aspirin in route to the hospital. Pain is low, currently 1 or 2 out of 10, and we will attempt treatment with morphine which she was in agreement. We'll also test her for COVID-19. He'll be connected to continuous cardiac monitoring. Patient was in agreement this plan. Patient's EKG showed no signs of acute ischemia.Chest x-ray showed no acute cardio pulmonary process. Laboratory studies remarkable for d-dimer within normal limits. Troponin is negative. Sugar is mildly elevated to 245. Alcohol level is negative. Covid is negative. Remainder of the labs are unremarkable. On reevaluation, patient is feeling improved. Chest pain is resolved. Heart score is 5. I discussed the findings on workup, and recommended that he be admitted for negative troponin and cardiac observation and telemetry. He was in agreement this plan. Cardiology was consulted. I spoke with the admitting mitesh josé under Dr. Pringle who was in agreement with the plan. Patient was therefore admitted in stable condition to observation telemetry. Reevaluation of this chart, does not appear that the patient received stenting, but did have a cardiac cath [address] Cherry it appears that they did not intervene. Chest pain may be related to stable angina. - Lab Data Result diagrams: 11/11/21 12:59 11/11/21 12:59 Lab Results 11/11/21 11/11/21 11/11/21 Range/Units 12:59 12:59 12:59 WBC 6.5 (3.8-10.6) k/uL RBC 4.78 (4.30-5.90) m/uL Hgb 14.1 (13.0-17.5) gm/dL Hct 42.3 (39.0-53.0) % MCV 88.4 (80.0-100.0) fL MCH 29.4 (25.0-35.0) pg MCHC 33.3 (31.0-37.0) g/dL RDW 13.9 (11.5-15.5) % Plt Count 201 (150-450) k/uL MPV 7.8 Neutrophils % 63 % Lymphocytes % 20 % Monocytes % 5 % Eosinophils % 10 % Basophils % 1 % Neutrophils # 4.1 (1.3-7.7) k/uL Lymphocytes # 1.3 (1.0-4.8) k/uL Monocytes # 0.3 (0-1.0) k/uL Eosinophils # 0.6 (0-0.7) k/uL Basophils # 0.1 (0-0.2) k/uL PT 10.6 (9.0-12.0) sec INR 1.0 (<1.2) APTT 21.9 L (22.0-30.0) sec D-Dimer 0.36 (<0.60) mg/L FEU Sodium 137 (137-145) mmol/L Potassium 4.6 (3.5-5.1) mmol/L Chloride 106 (98-107) mmol/L Carbon Dioxide 20 L (22-30) mmol/L Anion Gap 11 mmol/L BUN 27 H (9-20) mg/dL Creatinine 0.89 (0.66-1.25) mg/dL Est GFR (CKD-EPI)AfAm >90 (>60 ml/min/1.73 sqM) Est GFR (CKD-EPI)NonAf 89 (>60 ml/min/1.73 sqM) Glucose 245 H (74-99) mg/dL Calcium 9.1 (8.4-10.2) mg/dL Magnesium 1.7 (1.6-2.3) mg/dL Total Bilirubin 0.6 (0.2-1.3) mg/dL AST 27 (17-59) U/L ALT 26 (4-49) U/L Alkaline Phosphatase 98 (38-126) U/L Troponin I (0.000-0.034) ng/mL Total Protein 6.9 (6.3-8.2) g/dL Albumin 4.0 (3.5-5.0) g/dL Serum Alcohol mg/dL Coronavirus (PCR) (Not Detectd) 11/11/21 11/11/21 11/11/21 Range/Units 12:59 13:01 15:24 WBC (3.8-10.6) k/uL RBC (4.30-5.90) m/uL Hgb (13.0-17.5) gm/dL Hct (39.0-53.0) % MCV (80.0-100.0) fL MCH (25.0-35.0) pg MCHC (31.0-37.0) g/dL RDW (11.5-15.5) % Plt Count (150-450) k/uL MPV Neutrophils % % Lymphocytes % % Monocytes % % Eosinophils % % Basophils % % Neutrophils # (1.3-7.7) k/uL Lymphocytes # (1.0-4.8) k/uL Monocytes # (0-1.0) k/uL Eosinophils # (0-0.7) k/uL Basophils # (0-0.2) k/uL PT (9.0-12.0) sec INR (<1.2) APTT (22.0-30.0) sec D-Dimer (<0.60) mg/L FEU Sodium (137-145) mmol/L Potassium (3.5-5.1) mmol/L Chloride (98-107) mmol/L Carbon Dioxide (22-30) mmol/L Anion Gap mmol/L BUN (9-20) mg/dL Creatinine (0.66-1.25) mg/dL Est GFR (CKD-EPI)AfAm (>60 ml/min/1.73 sqM) Est GFR (CKD-EPI)NonAf (>60 ml/min/1.73 sqM) Glucose (74-99) mg/dL Calcium (8.4-10.2) mg/dL Magnesium (1.6-2.3) mg/dL Total Bilirubin (0.2-1.3) mg/dL AST (17-59) U/L ALT (4-49) U/L Alkaline Phosphatase (38-126) U/L Troponin I <0.012 (0.000-0.034) ng/mL Total Protein (6.3-8.2) g/dL Albumin (3.5-5.0) g/dL Serum Alcohol <10 mg/dL Coronavirus (PCR) Not Detected (Not Detectd) - EKG Data -: EKG Interpreted by Me EKG Comments: 12-lead Electrocardiogram Interpretation Note EKG was reviewed and interpreted by myself. 12-lead ECG performed at 1244 is interpreted by me as revealing sinus bradycardia at a rate of 57 beats per minute. [place] is normal. [place] Intervals 175 ms, QRS duration is 121 ms, QTc is 438 ms.. There were no ST or T wave abnormalities to suggest myocardial ischemia or injury. R wave progression across the precordium was satisfactory. By my interpretation this EKG is non-diagnostic for acute ischemia. Disposition Clinical Impression: Anginal pain Disposition: ADMITTED IP TO THIS HOSP Condition: Stable Referrals: Ezekiel Ramirez MD [Primary Care Provider] - 1-2 days
--- NOTE | 2021-11-11 13:52 | XR ---
EXAMINATION TYPE: XR chest 2V DATE OF EXAM: 11/11/2021 COMPARISON: 10/30/2021 TECHNIQUE: PA and lateral views submitted. HISTORY: Chest pain FINDINGS: The lungs are clear and there is no pneumothorax, pleural effusion, or focal pneumonia. Hypertrophi c change of the spine. Hyperinflation lungs with biapical pleural thickening. Heart size normal. No o vert failure. IMPRESSION: 1. No acute process.
[2021-11-11 14:13] LABS: Partial Thromboplastin Time 21.9 sec (22.0-30.0)
[2021-11-11] MEDS ORDERED: NALOXONE 0.4 MG/ML 1 ML VIAL IV PRN (15:14)
[2021-11-11] MEDS ORDERED: HEPARIN SODIUM,PORCINE/PF 5,000 UNIT/0.5 ML SYRINGE SQ SCH (16:00)
[2021-11-11] MEDS: metFORMIN 500 MG TAB PO SCH (20:16)
[2021-11-11] MEDS: METOPROLOL TARTRATE 25 MG TAB PO SCH (20:17)
[2021-11-11] MEDS ORDERED: HEPARIN SODIUM 1,000 UN/ML (10ML VL) IV PRN (21:52)
[2021-11-11] MEDS ORDERED: HEPARIN SOD,PORK IN 0.45% NACL 25,000 UNIT in 0.45% NACL 1 250ML.BAG IV SCH (22:30)
[2021-11-11] MEDS: PRAMIPEXOLE 0.5 MG TAB PO SCH (23:00)
[2021-11-11] MEDS: NITROGLYCERIN OINT 1 INCH/GM PACKET TOPICAL SCH (23:01)
[2021-11-12] MEDS ORDERED: NITROGLYCERIN SL TABS 0.4 MG TAB SUBLINGUAL PRN (07:51)
[2021-11-12] MEDS ORDERED: ATORVASTATIN 80 MG TAB PO STA (07:51)
[2021-11-12] MEDS ORDERED: ALPRAZolam 0.5 MG TAB PO PRN (07:51)
[2021-11-12] MEDS ORDERED: ALPRAZolam 0.25 MG TAB PO PRN (07:51)
[2021-11-12] MEDS ORDERED: ASPIRIN 325 MG TAB PO STA (07:51)
--- NOTE | 2021-11-12 08:00 | P.CRDCN ---
History of Present Illness Consult date: 11/12/21 History of present illness: The patient is a 66-year-old male with known history of hypertension, hyperlipidemia and diabetes who presented to the hospital recently with symptoms of chest discomfort, underwent cardiac catheterization by Dr. Cherry and was found to have significant obstructive disease involving the LAD and moderate severe disease in the circumflex. He underwent stenting of the LAD using a 2.75 x 12 mm and a 3.0 x 18 mm stents. IFR of the left circumflex was 0.97. Patient has done well since that time until yesterday, after his cardiac broke down and walking he had severe chest discomfort associated with dyspnea and somewhat reminding him of the way he felt prior to his initial presentation. He is feeling well this morning. He denies any dizziness or palpitation, no PND, orthopnea or peripheral edema. His systolic function in the past was normal. He has no documented history of congestive heart failure. His current risk factors are positive for hypertension, diabetes and hyperlipidemia he stopped smoking a few years ago and had a prior history of alcohol intake but consumes no alcohol over the last year or so. His troponin was less than 0.012, BUN and creatinine 27 and 0.89, potassium 4.6 His medication at home included metformin 500 mg twice a day, aspirin once a day, Effient 10 mg daily, losartan 50 mg daily, Lipitor 80 mg daily, Actos and Lopressor 25 mg twice a day. Review of system: Respiratory: No history of asthma, bronchitis or recent cough. He has dyspnea on exertion GI: No nausea, vomiting. No history of peptic ulcer disease. No recent GI bleed. : No hematuria or dysuria. Nervous System: No stroke or seizure. Physical examination 66-year-old male alert oriented no apparent distress, blood pressure 140/70 with a heart rate in the 60 Head: Normocephalic. Eyes: Sclerae nonicteric. Neck: Good carotid upstroke, no bruit, no jugular venous distention. Lungs: Clear to auscultation. Heart: Regular rate and rhythm, S1-S2, no S3, no murmur or rub. Abdomen: Soft nontender, positive bowel sounds no organomegaly. Extremities: No edema, intact distal pulses. EKG shows sinus mechanism rate of 57 with right bundle branch block and no acute ST segment changes Impression: 1. Chest discomfort rule out angina pectoris in a patient with recent stenting, no evidence of acute stent thrombosis by EKG or enzymatic changes. The patient had a lesion in the circumflex that was not significant by IFR recently 2. Status post stenting of the LAD 3. Hypertension 4. Hyperlipidemia 5. Diabetes mellitus Plan: 1. Continue dual antiplatelet treatment 2. Proceed with repeat cardiac catheterization, the risks and the complications were discussed with the patient. The procedure will be done by Dr. Parekh. 3. Depending on his progress further recommendations will be made 4. Thank you for this consult we will follow with you Past Medical History Past Medical History: Diabetes Mellitus, Hyperlipidemia History of Any Multi-Drug Resistant Organisms: None Reported Past Surgical History: Heart Catheterization With Stent, Hernia Repair Past Anesthesia/Blood Transfusion Reactions: No Reported Reaction Date of Last Stent Placement:: 10/30/21 Past Psychological History: Anxiety, Depression, Schizophrenia Smoking Status: Former smoker Past Alcohol Use History: Daily Past Drug Use History: None Reported Medications and Allergies Home Medications Medication Instructions Recorded Confirmed Type ARIPiprazole [Abilify] 5 mg PO DAILY 10/29/21 11/11/21 History Losartan Potassium 50 mg PO DAILY 10/29/21 11/11/21 History Pioglitazone [Actos] 15 mg PO DAILY 10/29/21 11/11/21 History Pramipexole [Mirapex] 0.5 mg PO TID 10/29/21 11/11/21 History Sertraline [Zoloft] 100 mg PO DAILY 10/29/21 11/11/21 History metFORMIN HCL 500 mg PO BID-W/MEALS 10/29/21 11/11/21 History Aspirin 81 mg PO DAILY 30 Days #30 tab 10/31/21 11/11/21 Rx Metoprolol Tartrate [Lopressor] 25 mg PO BID #60 tablet 10/31/21 11/11/21 Rx Nitroglycerin Sl Tabs [Nitrostat] 0.4 mg SUBLINGUAL Q5M PRN #30 tab 10/31/21 11/11/21 Rx Prasugrel [Effient] 10 mg PO DAILY 30 Days #30 tab 10/31/21 11/11/21 Rx Atorvastatin [Lipitor] 80 mg PO DAILY 11/11/21 11/11/21 History Allergies Allergy/AdvReac Type Severity Reaction Status Date / Time No Known Allergies Allergy Verified 11/11/21 13:56 Physical Exam Vitals: Vital Signs Temp Pulse Pulse Resp BP BP Pulse Ox 11/12/21 07:09 97.5 F L 57 L 16 140/73 96 11/12/21 02:14 97.8 F 65 18 142/80 97 11/11/21 21:53 98.0 F 57 L 20 135/77 98 11/11/21 17:00 97.9 F 53 L 18 158/63 98 11/11/21 12:38 97.8 F 60 18 135/66 98 Intake and Output 11/11/21 11/12/21 11/12/21 22:59 06:59 14:59 Intake Total 66.622 Balance 66.622 Intake: Intake, IV Titration 66.622 Amount Heparin Sod,Pork in 0.45% 66.622 NaCl 25,000 unit In 0.45 % NaCl 1 250ml.bag @ 12 UNITS/KG/HR 9.253 mls/hr IV .Q24H [facility] Rx#: [id number] Other: Weight 77.111 kg Results 11/11/21 12:59 11/11/21 12:59 Cardiac Enzymes 11/11/21 11/11/21 11/11/21 Range/Units 12:59 12:59 19:14 AST 27 (17-59) U/L Troponin I <0.012 <0.012 (0.000-0.034) ng/mL 11/11/21 Range/Units 21:39 AST (17-59) U/L Troponin I <0.012 (0.000-0.034) ng/mL Coagulation 11/11/21 11/11/21 11/12/21 Range/Units 12:59 22:16 03:31 PT 10.6 (9.0-12.0) sec APTT 21.9 L 24.2 41.4 H (22.0-30.0) sec CBC 11/11/21 Range/Units 12:59 WBC 6.5 (3.8-10.6) k/uL RBC 4.78 (4.30-5.90) m/uL Hgb 14.1 (13.0-17.5) gm/dL Hct 42.3 (39.0-53.0) % Plt Count 201 (150-450) k/uL Comprehensive Metabolic Panel 02/15/22 Range/Units 12:59 Sodium 137 (137-145) mmol/L Potassium 4.6 (3.5-5.1) mmol/L Chloride 106 (98-107) mmol/L Carbon Dioxide 20 L (22-30) mmol/L BUN 27 H (9-20) mg/dL Creatinine 0.89 (0.66-1.25) mg/dL Glucose 245 H (74-99) mg/dL Calcium 9.1 (8.4-10.2) mg/dL AST 27 (17-59) U/L ALT 26 (4-49) U/L Alkaline Phosphatase 98 (38-126) U/L Total Protein 6.9 (6.3-8.2) g/dL Albumin 4.0 (3.5-5.0) g/dL Current Medications Generic Name Dose Route Start Last Admin Trade Name Freq PRN Reason Stop Dose Admin Alprazolam 0.25 mg 11/12/21 07:51 Alprazolam 0.25 Mg Tab PO Q6HR PRN Mild Anxiety Alprazolam 0.5 mg 11/12/21 07:51 Alprazolam 0.5 Mg Tab PO Q6HR PRN Moderate Anxiety Aripiprazole 5 mg 11/12/21 09:00 Aripiprazole 5 Mg Tab PO DAILY [facility] Aspirin 81 mg 11/12/21 09:00 Aspirin 81 Mg PO DAILY [facility] Aspirin 325 mg 11/12/21 07:51 Aspirin 325 Mg Tab PO 11/12/21 07:52 ONCE STA Atorvastatin Calcium 80 mg 11/12/21 09:00 Atorvastatin 80 Mg Tab PO DAILY [facility] Atorvastatin Calcium 80 mg 11/12/21 07:51 Atorvastatin 80 Mg Tab PO 11/12/21 07:52 ONCE STA Heparin Sodium (Porcine) 0 unit 11/11/21 21:52 11/12/21 06:14 Heparin Sodium 1,000 Un/Ml (10ml Vl) IV 1,927 unit PER PROTOCOL PRN Administration Low PTT Protocol Heparin Sodium/Sodium Chloride 250 mls @ 9.253 mls/hr 11/11/21 22:30 11/12/21 06:12 25,000 unit/ Sodium Chloride IV 14 units/kg/hr .Q24H [facility] 10.796 mls/hr Titration Protocol 12 UNITS/KG/HR Heparin Sodium (Porcine) 10, 1,001 mls @ 999 mls/hr 11/13/21 07:00 000 unit/ Sodium Chloride IRRIGATION 11/13/21 23:00 ONCE PRN INTRA-OP Heparin Sodium (Porcine) 2,500 250.5 mls @ 250 mls/hr 11/13/21 07:00 unit/ Sodium Chloride IRRIGATION 11/13/21 23:00 ONCE PRN INTRA-OP Losartan Potassium 50 mg 11/12/21 09:00 Losartan 50 Mg Tab PO DAILY [facility] Metformin HCl 500 mg 11/11/21 17:30 11/11/21 20:16 Metformin 500 Mg Tab PO 500 mg BID-W/MEALS [facility] Administration Metoprolol Tartrate 25 mg 11/11/21 21:00 11/11/21 20:17 Metoprolol Tartrate 25 Mg Tab PO 25 mg BID [facility] Administration Naloxone HCl 0.2 mg 11/11/21 15:14 Naloxone 0.4 Mg/Ml 1 Ml Vial IV Q2M PRN Opioid Reversal Nitroglycerin 0.75 inch 11/12/21 00:00 11/11/21 23:01 Nitroglycerin Oint 1 Inch/Gm Packet TOPICAL 0.75 inch Q8HR [facility] Administration Nitroglycerin 0.4 mg 11/12/21 07:51 Nitroglycerin Sl Tabs 0.4 Mg Tab SUBLINGUAL Q5M PRN Chest Pain Pramipexole Dihydrochloride 0.5 mg 11/11/21 22:00 11/11/21 23:00 Pramipexole 0.5 Mg Tab PO 0.5 mg TID [facility] Administration Prasugrel 10 mg 11/12/21 09:00 Prasugrel 10 Mg Tab PO DAILY [facility] Sertraline HCl 100 mg 11/12/21 09:00 Sertraline 100 Mg Tab PO DAILY [facility] Intake and Output 11/11/21 11/12/21 11/12/21 22:59 06:59 14:59 Intake Total 66.622 Balance 66.622 Intake: Intake, IV Titration 66.622 Amount Heparin Sod,Pork in 0.45% 66.622 NaCl 25,000 unit In 0.45 % NaCl 1 250ml.bag @ 12 UNITS/KG/HR 9.253 mls/hr IV .Q24H [facility] Rx#: [id number] Other: Weight 77.111 kg 11/11/21 12:59 11/11/21 12:59
[2021-11-12 08:03] LABS: Glucose,Whole Blood 230 mg/dL (75-99)
[2021-11-12] MEDS: metFORMIN 500 MG TAB PO SCH (08:30)
[2021-11-12] MEDS: SERTRALINE 100 MG TAB PO SCH (09:29)
[2021-11-12] MEDS: METOPROLOL TARTRATE 25 MG TAB PO SCH ×2 (09:29→20:41)
[2021-11-12] MEDS: PRAMIPEXOLE 0.5 MG TAB PO SCH ×3 (09:30→23:20)
[2021-11-12] MEDS: LOSARTAN 50 MG TAB PO SCH (09:30)
[2021-11-12] MEDS: ARIPiprazole 5 MG TAB PO SCH (09:30)
[2021-11-12] MEDS: PRASUGREL 10 MG TAB PO SCH (09:30)
[2021-11-12] MEDS: ATORVASTATIN 80 MG TAB PO SCH (09:31)
[2021-11-12] MEDS: ASPIRIN 81 MG PO SCH (09:31)
[2021-11-12 09:35] LABS: Basophils # (A) 0.05 X 10*3/uL (0.00-0.10); Basophils % (A) 0.7 %; Eosinophils # (A) 0.61 X 10*3/uL (0.04-0.35); Eosinophils % (A) 9.1 %; HCT 39.5 % (39.6-50.0); HGB 13.2 g/dL (13.0-17.0); Immature Grans, Automated 0.6 %; Lymphocytes # (A) 1.85 X 10*3/uL (0.90-5.00); Lymphocytes % (A) 27.5 %; MCH 29.2 pg (27.0-32.0); MCHC 33.4 g/dL (32.0-37.0); MCV 87.4 fL (80.0-97.0); Mean Platelet Volume 10.4 fL (9.5-12.2); Monocytes # (A) 0.43 X 10*3/uL (0.20-1.00); Monocytes % (A) 6.4 %; NRBC Per 100 WBC 0 /100 WBCS (0.0-0.0); Neutrophils # (A) 3.75 X 10*3/uL (1.80-7.70); Neutrophils % (A) 55.7 %; Platelet Count 195 X 10*3/uL (140-440); RBC 4.52 X 10*6/uL (4.40-5.60); RDW 13.4 % (11.5-14.5); WBC 6.73 X 10*3/uL (4.50-10.00)
[2021-11-12] MEDS: NITROGLYCERIN OINT 1 INCH/GM PACKET TOPICAL SCH (09:38)
[2021-11-12 09:39] LABS: ALT 30 U/L (10-49); AST 30 U/L (14-35); African American GFR (CKD) 89.9 (60.0-200.0); Albumin 3.8 g/dL (3.8-4.9); Albumin/Globulin Ratio 1.58 (1.60-3.17); Alkaline Phosphatase 100 U/L (41-126); Blood Urea Nitrogen 27.2 mg/dL (9.0-27.0); Calcium 8.8 mg/dL (8.7-10.3); Carbon Dioxide 16.4 mmol/L (20.0-27.5); Chloride 104 mmol/L (96-109); Globulin 2.4 g/dL (1.6-3.3); Glucose 223 mg/dL (70-110); Non-African American GFR(CKD) 77.5 (60.0-200.0); Potassium 4.1 mmol/L (3.5-5.5); Sodium 134 mmol/L (135-145); Total Bilirubin <0.15 mg/dL (0.30-1.20); Total Protein 6.2 g/dL (6.2-8.2)
[2021-11-12] MEDS ORDERED: LIDOCAINE 1% INJ 10MG/ML (20 ML MDV) ONE (11:50)
[2021-11-12] MEDS ORDERED: VERAPAMIL 2.5 MG/ML 2 ML AMP ONE (11:50)
[2021-11-12] MEDS ORDERED: IV FLUID CONTINUATION 700 ML IV ONE (12:00)
[2021-11-12] MEDS ORDERED: fentaNYL (PF) 50 MCG/ML 2 ML AMP ONE (12:01)
[2021-11-12] MEDS ORDERED: PHENYLEPHRINE-0.9% NACL SYG 1,000 MCG/10 ML SYRINGE IV ONE (12:10)
[2021-11-12] MEDS ORDERED: fentaNYL (PF) 50 MCG/ML 2 ML AMP IVP ONE (12:12)
[2021-11-12] MEDS ORDERED: MIDAZOLAM 2 MG/2 ML VIAL IVP ONE (12:12)
[2021-11-12] MEDS ORDERED: LIDOCAINE 1% INJ 10MG/ML (20 ML MDV) SQ ONE (12:13)
[2021-11-12] MEDS ORDERED: VERAPAMIL SYRINGE (5 MG/10 ML) INTRAARTER ONE (12:16)
[2021-11-12] MEDS: HEPARIN SODIUM 1,000 UN/ML (10ML VL) IV ONE ×4 (12:21→14:09)
[2021-11-12] MEDS: NITROGLYCERIN 1000MCG/10ML SYRINGE INTRACORON ONE ×6 (12:34→14:18)
[2021-11-12] MEDS ORDERED: ADENOSINE 90 MG in SODIUM CHLORIDE 0.9% 60 ML IVP ONE (12:56)
[2021-11-12] MEDS ORDERED: SODIUM CHLORIDE 0.9% 250 ML BAG ONE (13:25)
[2021-11-12] MEDS ORDERED: NOREPINEPHRINE 1 MG/ML 4 ML VIAL IV ONE (13:25)
[2021-11-12] MEDS ORDERED: IOPAMIDOL-370 125ML BTL INJ ONE (13:29)
[2021-11-12] MEDS ORDERED: NITROGLYCERIN-D5W PMX 50 MG in DEXTROSE/WATER 1 250ML.BAG IV ONE (13:45)
[2021-11-12] MEDS ORDERED: niCARdipine Syringe (1,000 mcg/10 mL) INTRACORON ONE (14:09)
[2021-11-12] MEDS ORDERED: niCARdipine 25 MG/10 ML VIAL ONE (14:10)
[2021-11-12] MEDS ORDERED: ONDANSETRON 4 MG/2 ML VIAL IVP ONE (14:11)
[2021-11-12] MEDS ORDERED: ONDANSETRON 4 MG/2 ML VIAL ONE (14:13)
[2021-11-12] MEDS ORDERED: IOPAMIDOL-370 100ML BTL INJ ONE ×2 (14:18→14:25)
[2021-11-12] MEDS ORDERED: TIROFIBAN BOLUS 12.5MG/250 ML BAG IV ONE (14:18)
[2021-11-12] MEDS ORDERED: TIROFIBAN 12.5MG-250ML NS 250 ML IV ONE (14:18)
[2021-11-12] MEDS ORDERED: ATROPINE SULFATE 0.1 MG/ML 10ML SYRINGE IV PRN (14:54)
[2021-11-12] MEDS ORDERED: RX INFO: IV CONTRAST WAS GIVEN 1 EACH MISC MISCELLANE PRN (14:54)
[2021-11-12] MEDS ORDERED: ZOLPIDEM 5 MG TAB PO PRN (14:54)
[2021-11-12] MEDS ORDERED: MAG HYDROX/AL HYDROX/SIMETH 30 ML CUP PO PRN (14:54)
[2021-11-12] MEDS ORDERED: SODIUM CHLORIDE 0.9% 1,000 ML in EMPTY BAG 1 BAG IV SCH (15:00)
[2021-11-12] MEDS ORDERED: TIROFIBAN 12.5MG-250ML NS 250 ML IV SCH (15:00)
[2021-11-12 15:06] LABS: Glucose,Whole Blood 229 mg/dL (75-99)
[2021-11-12] MEDS: NITROGLYCERIN-D5W PMX 50 MG in DEXTROSE/WATER 1 250ML.BAG IV SCH (15:18)
[2021-11-12] MEDS: INSULIN ASPART (NovoLOG) 100 UNIT/ML VIAL SQ SCH ×3 (15:19→20:40)
[2021-11-12 17:09] LABS: Glucose,Whole Blood 161 mg/dL (75-99)
[2021-11-12] MEDS ORDERED: INSULIN ASPART (NovoLOG) 100 UNIT/ML VIAL SQ SCH ×2 (17:30)
--- NOTE | 2021-11-12 18:09 | P.HPIM ---
History of Present Illness H&P Date: 11/12/21 Chief Complaint: Chest pain This is a pleasant 66-year-old patient, with chronic stable medical conditions include diabetes mellitus, hyperlipidemia, Parkinson's., Schizophrenia, anxiety depression. baseline is unsteady on his gait. Has to hold onto things. 10/30/2021: angioplasty stenting to proximal LAD with a DONNA. Also has circumflex 60-70% stenosis the latter which is to be treated medically. Was discharged Now for 3-4 days patient with having central chest pain coming on and off for failure variable duration. Like a pressure. No radiation. Some associated dizziness shortness of breath. No obvious precipitating or relieving factor. Troponins were negative. No specific findings on the EKG. Admitted unstable angina. Started IV heparin. This afternoon patient was taken down for cardiac catheterization by Dr. Luna. Formal report is not out but patient apparently had a stent of the LAD and circumflex. Postprocedure patient still having chest pain. Was put on a nitroglycerin drip. Patient now chest pain-free. Review of systems: GEN.: Tired EYES: None HEENT: None NECK: None RESPIRATORY: None CARDIOVASCULAR: As above GASTROINTESTINAL: None GENITOURINARY: None MUSCULOSKELETAL: None LYMPHATICS: None HEMATOLOGICAL: None PSYCHIATRY: Anxious NEUROLOGICAL: Baseline unsteady gait and some tremors Past medical history to include: Diabetes, hyperlipidemia, anxiety, depression, schizophrenia, Parkinson's, CAD with stent to LAD Social history: Lives alone. Retired from [employer]. No history of smoking or alcohol. Family history: Reviewed, noncontributory to presentation Physical examination: VITAL SIGNS: 97.5, 57, 16, 140/73, 96% room air GENERAL: BMI 25.1, laying in bed, awake, not in distress. EYES: Pupils equal. Conjunctiva normal. HEENT: External appearance of nose and ears normal, oral cavity grossly normal. NECK: JVD not raised; masses not palpable. HEART: First and second heart sounds are normal; no edema. LUNGS: Respiratory rate normal; clear to auscultation. ABDOMEN: Soft, nontender, liver spleen not palpable, no masses palpable. PSYCH: Alert and oriented x3; mood and affect normal. MUSCULOSKELETAL:No Clubbing/cyanosis;muscles-grossly intact NEUROLOGICAL: Cranial nerves grossly intact; no facial asymmetry, power and sensation grossly intact. LYMPHATICS: No lymph nodes palpable in the axilla and neck INVESTIGATIONS, reviewed in the clinical context: White count 6.7 Hemoglobin 13.2 platelets 195 potassium 4.1 creatinine 1.0 Troponin I 3 negative Coronavirus [PCR]: Not detected EKG tracing personally reviewed by me-normal sinus rhythm. Chest x-ray film personally reviewed by me: Unremarkable Assessment and plan: -Unstable angina in a patient with recent stent of the LAD and disease on the circumflex Patient is undergone cardiac catheterization with a stent to LAD and circumflex IV heparin monitoring -Post cardiac cath stenting angina pain IV nitroglycerin drip -IV heparin monitoring Follow PTT -CAD with stent to LAD, circumflex Aspirin, Lipitor, Effient, Lopressor -IV heparin monitoring: Discontinued Follow PTT -Hyperlipidemia Lipitor 80 mg daily at bedtime -Diabetes mellitus type 2 Actos 50 mg daily. metformin-hold. Accu-Cheks and sliding scale insulin -Idiopathic Parkinson's disease Mirapex 0.5 mg by mouth 3 times a day -Schizophrenia Abilify 5 mg a day -Depression not otherwise specified Zoloft 100 mg daily Stent to LAD and circumflex. Post coronary stent pain. IV nitroglycerin drip. IV heparin drip. Home medications resumed. Patient also received Aggrastat. Follow Accu-Cheks. Cardiology consulted. Given the complexity and severity of patient's condition expect the patient to be in the hospital at least for 2 overnights Past Medical History Past Medical History: Diabetes Mellitus, Hyperlipidemia History of Any Multi-Drug Resistant Organisms: None Reported Past Surgical History: Heart Catheterization With Stent, Hernia Repair Past Anesthesia/Blood Transfusion Reactions: No Reported Reaction Date of Last Stent Placement:: 10/30/21 Past Psychological History: Anxiety, Depression, Schizophrenia Smoking Status: Former smoker Past Alcohol Use History: Daily Past Drug Use History: None Reported Medications and Allergies Home Medications Medication Instructions Recorded Confirmed Type ARIPiprazole [Abilify] 5 mg PO DAILY 10/29/21 11/11/21 History Losartan Potassium 50 mg PO DAILY 10/29/21 11/11/21 History Pioglitazone [Actos] 15 mg PO DAILY 10/29/21 11/11/21 History Pramipexole [Mirapex] 0.5 mg PO TID 10/29/21 11/11/21 History Sertraline [Zoloft] 100 mg PO DAILY 10/29/21 11/11/21 History metFORMIN HCL 500 mg PO BID-W/MEALS 10/29/21 11/11/21 History Aspirin 81 mg PO DAILY 30 Days #30 tab 10/31/21 11/11/21 Rx Metoprolol Tartrate [Lopressor] 25 mg PO BID #60 tablet 10/31/21 11/11/21 Rx Nitroglycerin Sl Tabs [Nitrostat] 0.4 mg SUBLINGUAL Q5M PRN #30 tab 10/31/21 11/11/21 Rx Prasugrel [Effient] 10 mg PO DAILY 30 Days #30 tab 10/31/21 11/11/21 Rx Atorvastatin [Lipitor] 80 mg PO DAILY 11/11/21 11/11/21 History Allergies Allergy/AdvReac Type Severity Reaction Status Date / Time No Known Allergies Allergy Verified 11/11/21 13:56 Physical Exam Vitals: Vital Signs Temp Pulse Pulse Resp BP BP Pulse Ox 11/12/21 10:15 16 11/12/21 07:09 97.5 F L 57 L 16 140/73 96 11/12/21 02:14 97.8 F 65 18 142/80 97 11/11/21 21:53 98.0 F 57 L 20 135/77 98 11/11/21 17:00 97.9 F 53 L 18 158/63 98 11/11/21 12:38 97.8 F 60 18 135/66 98 Intake and Output 11/11/21 11/12/21 11/12/21 22:59 06:59 14:59 Intake Total 66.622 Balance 66.622 Intake: Intake, IV Titration 66.622 Amount Heparin Sod,Pork in 0.45% 66.622 NaCl 25,000 unit In 0.45 % NaCl 1 250ml.bag @ 12 UNITS/KG/HR 9.253 mls/hr IV .Q24H [facility] Rx#: [id number] Other: Voiding Method Toilet Weight 77.111 kg Results CBC & Chem 7: 11/12/21 03:31 11/12/21 03:31 Labs: Abnormal Lab Results - Last 24 Hours (Table) 11/11/21 11/11/21 11/12/21 Range/Units 12:59 12:59 03:31 Hct 39.5 L (39.6-50.0) % Eosinophils # 0.61 H (0.04-0.35) X 10*3/uL APTT 21.9 L (22.0-30.0) sec Sodium (135-145) mmol/L Carbon Dioxide 20 L (22-30) mmol/L BUN 27 H (9-20) mg/dL BUN/Creatinine Ratio (12.00-20.00) Ratio Glucose 245 H (74-99) mg/dL POC Glucose (mg/dL) (75-99) mg/dL Total Bilirubin (0.30-1.20) mg/dL Albumin/Globulin Ratio (1.60-3.17) g/dL 11/12/21 11/12/21 11/12/21 Range/Units 03:31 03:31 08:02 Hct (39.6-50.0) % Eosinophils # (0.04-0.35) X 10*3/uL APTT 41.4 H (22.0-30.0) sec Sodium 134 L (135-145) mmol/L Carbon Dioxide 16.4 L (22-30) mmol/L BUN 27.2 H (9-20) mg/dL BUN/Creatinine Ratio 27.20 H (12.00-20.00) Ratio Glucose 223 H (74-99) mg/dL POC Glucose (mg/dL) 230 H (75-99) mg/dL Total Bilirubin <0.15 L (0.30-1.20) mg/dL Albumin/Globulin Ratio 1.58 L (1.60-3.17) g/dL Thrombosis Risk Factor Assmnt - Choose All That Apply Each Risk Factor Represents 2 Points: Age 61-74 years Thrombosis Risk Factor Assessment Total Risk Factor Score: 2 Thrombosis Risk Factor Assessment Level: Low Risk
[2021-11-12 20:17] LABS: Glucose,Whole Blood 214 mg/dL (75-99)
--- NOTE | 2021-11-12 21:25 | P.PRCINT ---
Percutaneous Coronary Int. - Percutaneous Coronary Intervention Percutaneous Coronary Intervention: PROCEDURES PERFORMED: Left heart catheterization, bilateral coronary angiography, iFR LAD, FFR LAD, iFR ramus intermedius, iFR circumflex, PCI mid LAD with 3.0 x 18mm Xience DONNA, PCI mid circumflex with 3.0 x 15mm Xience DONNA, IVUS LAD, IVUS circumflex INDICATION: Chest pain concerning for unstable angina HISTORY: Patient is a pleasant 66 year old male with DM2, prior tobacco abuse and alcohol abuse. He has been having new onset chest pain concerning for unstable angina over the last 2 months and had heart catheterization 10/30/2021 which showed obstructive proximal LAD disease with more distal LAD 60% stenosis as well as circumflex 70% stenosis with iFR circumflex normal and moderate to severe disease of ramus. Patient did well with PCI proximal LAD however had reoccurence of chest pressure and SOB with lightheadedness with minimal exertion walking trash out and therefore presented back due to reoccurence of chest pain. Therefore LH was recommended. PROCEDURE: After the risks, benefits and alternatives of the above mentioned procedure explained in detail with the patient, informed consent was obtained. Patient was taken to the catheterization lab and prepped and draped in usual fashion. A right radial 6Fr sheath was placed using modified Seldinger technique. Right coronary angiography was performed with a 5Fr FR5 catheter. A 6Fr CLS 3.0 guide was used to engage the left main however as had been done before, 2 x 0.014 BMW wires (one down the circumflex and one down the LAD) were used to prevent the guide deep seating given angulation and extremely short left main with guide otherwise deep seating with ventricularization. Heparin was given for ACT > 250. The decision was made to perform iFR of the LAD, ramus and circumflex. A 0.014 pressure wire was advanced and normalized and then inserted into the mid to distal LAD, ramus and circumflex. The iFR was 0.90 in LAD, 0.85 in ramus, 1.0 in circumflex. Given symptoms concerning and reoccurence of unstable angina there was still concern of LAD and circumflex lesion. FFR was then performed of the LAD which was abnormal at 0.78. Therefore balloon angioplasty was performed of the mid LAD with a 2.5 x 12mm balloon. Next PCI of the mid LAD was performed with a 3.0 x 18mm Xience DONNA. After angioplasty and stenting, patient had some increase in SOB and chest pain and became hypotensive requiring Neosynephrine. Angiogram showed decreased flow down the circumflex and concern of possible proximal circumflex or left main dissection. Given hypotension, right femoral access was obtained using a 6Fr sheath for possible Impella placement. Patient however stabilized and then IVUS of the LAD and circumflex were both performed. IVUS LAD showed well expanded stent with reference vessel 3.0mm with a short gap between previous stent and newly placed stent without significant disease. There was no dissection. IVUS circumflex showed no dissection and more focal 75% stenosis of the mid circumflex. On repeat angiograms there also appeared to be a hazy lucency just distal to the circumflex lesion concerning for a possible proximal circumflex thrombus that had formed with distal embolization. Patient was given time with continued chest pain and repeat angiograms then showed more distal decreased flow in the left PLV branch. Therefore the decision was made to perform PCI of the mid circumflex lesion. A 3.0 x 15mm Xience DONNA was advanced and deployed at the mid circumflex lesion. Pre circumflex intervention there was BROOKLYN 3 flow and 75% stenosis with BROOK[place]N 2 flow in a 99% small caliber OM1 vessel and post in tervention there was BROOK[place] 3 flow in the circumflex and 0% stenosis with continued 99% stenosis of the OM1 and BROOK[place]N 2 flow in the OM1. Repeat IVUS was performed which showed no dissection with well apposed circumflex stent. There was decreased flow in the left PLV and therefore this was wired and a 1.5 balloon was advanced and not deployed to help break up thrombus which helped on repeat imaging. Intracoronary Nicardipine was given. IV Aggrastat was given. Heparin was rechecked a number of times with one number being around 200 however was continually readjusted with theraputic ACT's. With treatment, flow in PLV and entire left coronary system improved. Symptoms appeared related to a more proximal thrombus formation less likely from guide and more likely from thrombus on LAD balloon which embolized down circumflex with removal of balloon. Patient's chest pain improved and guide catheter was removed. The right radial sheath was removed and a TR band was placed with hemostasis achieved. The femoral sheath was left in place for manual pull. Patient was transported back to the post catheterization holding area in stable condition. Conscious Sedation: Patient was monitored under the direct supervision of vision of myself for conscious sedation using Versed and fentanyl for a total duration of 128 minutes SELECTIVE CORONARY ARTERIOGRAPHY: LEFT MAIN: The left main is large caliber, short vessel with no significant stenosis. It trifurcates into the LAD, a small caliber ramus and circumflex. LEFT ANTERIOR DESCENDING CORONARY ARTERY: The LAD is large caliber and wraps around to the apex. There is a patent proximal LAD stent which comes back to the ostium. Otherwise there is a mid LAD 50-60% stenosis with iFR 0.90 and FFR abnormal at 0.78. The remainder of the LAD has mild luminal irregularities. RAMUS INTERMEDIUS: The ramus is a small caliber vessel with diffuse proximal to mid 75% stenosis and appears to be a 1.75mm vessel. LEFT CIRCUMFLEX CORONARY ARTERY: The left circumflex is large caliber and supplies a left PLV and PDA and is a codominant vessel. There is a mid circumflex 60-70% stenosis. At this level there is a small caliber OM1 which soto s a proximal 99% stenosis with BROOK[place]N 2 flow. RIGHT CORONARY ARTERY: The right coronary artery was is small caliber and codominant with diffuse 30-60% stenosis from the proximal to the mid RCA. It g lauryn off an acute marginal branch and a small caliber PDA. FINAL IMPRESSION: 1. CAD as described above s/p PCI mid LAD with 3.0 x 18mm Xience DONNA 2. S/p PCI mid circumflex with 3.0 x 15mm Xience DONNA 3. Residual mild chest pain from PCI felt to be related to distal embolization from proximal thrombus, improved by end of case PLAN: 1. Aggressive risk factor modification per most recent ACC/AHA guidelines. 2. Continue dual antiplatelets for 12 months.
[2021-11-13 06:17] LABS: Glucose,Whole Blood 156 mg/dL (75-99)
[2021-11-13] MEDS: INSULIN ASPART (NovoLOG) 100 UNIT/ML VIAL SQ SCH ×2 (06:31→12:07)
[2021-11-13] MEDS ORDERED: HEPARIN SODIUM,PORCINE 10,000 UNIT in SODIUM CHLORIDE 0.9% 1,000 ML IRRIGATION PRN (07:00)
[2021-11-13] MEDS ORDERED: HEPARIN SODIUM,PORCINE 2,500 UNIT in SODIUM CHLORIDE 0.9% 250 ML IRRIGATION PRN (07:00)
[2021-11-13 08:40] VITALS: RESP 16
[2021-11-13 08:51] LABS: Basophils % (A) 0 %; Eosinophils # (A) 0.2 k/uL (0-0.7); Eosinophils % (A) 5 %; Lymphocytes # (A) 0.8 k/uL (1.0-4.8); Lymphocytes % (A) 23 %; MCH 30.3 pg (25.0-35.0); MCHC 34.3 g/dL (31.0-37.0); MCV 88.5 fL (80.0-100.0); Mean Platelet Volume 8.5; Monocytes # (A) 0.1 k/uL (0-1.0); Monocytes % (A) 3 %; Neutrophils # (A) 2.3 k/uL (1.3-7.7); Neutrophils % (A) 67 %; Platelet Count 198 k/uL (150-450); RBC 4.29 m/uL (4.30-5.90); RDW 14.7 % (11.5-15.5); WBC 3.5 k/uL (3.8-10.6)
[2021-11-13] MEDS: PRASUGREL 10 MG TAB PO SCH (08:53)
[2021-11-13] MEDS: LOSARTAN 50 MG TAB PO SCH (08:53)
[2021-11-13] MEDS: METOPROLOL TARTRATE 25 MG TAB PO SCH (08:54)
[2021-11-13] MEDS: ATORVASTATIN 80 MG TAB PO SCH (08:54)
[2021-11-13] MEDS: PRAMIPEXOLE 0.5 MG TAB PO SCH (08:54)
[2021-11-13] MEDS: ARIPiprazole 5 MG TAB PO SCH (08:54)
[2021-11-13] MEDS: ASPIRIN 81 MG PO SCH (08:55)
[2021-11-13] MEDS: SERTRALINE 100 MG TAB PO SCH (08:55)
[2021-11-13 09:15] LABS: African American GFR (CKD) >90 (>60 ml/min/1.73 sqM); Anion Gap 5 mmol/L; Blood Urea Nitrogen 23 mg/dL (9-20); Calcium 8.6 mg/dL (8.4-10.2); Carbon Dioxide 23 mmol/L (22-30); Chloride 110 mmol/L (98-107); Glucose 197 mg/dL (74-99); Non-African American GFR(CKD) 89 (>60 ml/min/1.73 sqM); Potassium 3.9 mmol/L (3.5-5.1); Sodium 138 mmol/L (137-145)
[2021-11-13 10:12] VITALS: BMI 24.3
[2021-11-13 11:24] LABS: Glucose,Whole Blood 220 mg/dL (75-99)
--- NOTE | 2021-11-13 11:28 | P.PN ---
Subjective The patient is a 66-year-old male with known history of hypertension, hyperlipidemia and diabetes who presented to the hospital recently with symptoms of chest discomfort, underwent cardiac catheterization by Dr. Cherry on 10/30/2021 and was found to have significant obstructive disease involving the LAD and moderate severe disease in the circumflex. 10/30/2021 He underwent stenting of the proximal LAD using a 2.75 x 12 mm and a 3.0 x 18 mm stents. IFR of the left circumflex was 0.97. He presents to the hospital again with chest pain. Patient did well with PCI proximal LAD however had reoccurence of chest pressure and SOB with lightheadedness with minimal exertion walking trash out and therefore presented back due to reoccurence of chest pain. Therefore LHC was recommended. His troponin was less than 0.012. EKG shows sinus mechanism rate of 57 with right bundle branch block and no acute ST segment changes. The patient had a lesion in the circumflex that was not significant by IFR recently. Cardiac catheterization was recommended. 11/12/2021 Patient underwent cardiac catheterization with Dr. Parekh which revealed patent proximal LAD stent, mid LAD 5060% stenosis with iFR 0.90 and FFR abnormal at 0.78, mid circumflex 60-70% stenosis. At this level there is a small caliber OM1 which has a proximal 99% stenosis with BROOK[place]N 2 flow, 30-60% stenosis from the proximal to the mid RCA. Patient underwent PCI to mid LAD and mid circumflex. 11/13/2021 Patient seen and examined at bedside, no acute distress. He has no further ch est pain. Denies shortness of breath. Nitroglycerin drip and heparin drip has been stopped. Vital signs are stable. Blood pressure 128/76, heart rate 61, afebrile, saturations 98% on room air. He's currently maintained on aspirin 81 mg daily, Effient 10 mg daily, atorvastatin, losartan 50 mg daily, metoprolol tartrate 25 mg twice a day VITALS: GENERAL: Well-appearing, well-nourished and in no acute distress. NECK: Supple without JVD or thyromegaly. LUNGS: Breath sounds clear to auscultation bilaterally. Respiration equal and unlabored. No wheezes, rales or rhonchi. HEART: Regular rate and rhythm without murmurs, rubs or gallops. S1 and S2 heard. EXTREMITIES: Normal range of motion, no edema. No clubbing or cyanosis. Peripheral pulses intact. SKIN: Right radial cath site, clean dry, intact no hematoma 1+ pulses ASSESSMENT Chest discomfort rule out angina pectoris in a patient with recent stenting, no evidence of acute stent thrombosis by EKG or enzymatic changes. The patient had a lesion in the circumflex that was not significant by IFR recently Coronary artery disease Status post stenting of the proximal LAD 10/30/2021 Status post stenting of mid LAD and mid circumflex 11/12/2021 Hypertension Hyperlipidemia Diabetes mellitus, type 2 Plan: Continue dual antiplatelet treatment, statin, losartan, beta andria From cardiology perspective, patient stable to be discharged home. Follow up with Dr. Cherry in one week Objective - Vital Signs Vital signs: Vital Signs Temp 97.4 F L 11/13/21 04:40 Pulse 56 L 11/13/21 04:40 Resp 17 11/13/21 04:40 BP 119/76 11/13/21 04:40 Pulse Ox 95 11/13/21 04:40 Intake & Output 11/12/21 11/13/21 11/13/21 18:59 06:59 18:59 Intake Total 707.824 265 Output Total 250 Balance 457.824 265 Intake: IV 665 Intake, IV Titration 42.824 265 Amount Heparin Sod,Pork in 0.45% 42.824 NaCl 25,000 unit In 0.45 % NaCl 1 250ml.bag @ 12 UNITS/KG/HR 9.253 mls/hr IV .Q24H [facility] Rx#: [id number] Nitroglycerin-D5w Pmx 50 15 mg In Dextrose/Water 1 250ml.bag @ 20 MCG/MIN 6 mls/hr IV .Q24H [facility] Rx#: [id number] Tirofiban 12.5MG-250Ml Ns 250 250 ml @ 0.15 MCG/KG/MIN 13.88 mls/hr IV .Q18H1M [facility] Rx#:[id number] Output: Urine 250 Other: Voiding Method Toilet Toilet # Voids 350 1 - Labs CBC & Chem 7: 11/13/21 08:38 11/13/21 08:38 Labs: Abnormal Lab Results - Last 24 Hours (Table) 11/12/21 11/12/21 11/12/21 Range/Units 03:31 03:31 08:02 Hct 39.5 L (39.6-50.0) % Eosinophils # 0.61 H (0.04-0.35) X 10*3/uL Sodium 134 L (135-145) mmol/L Carbon Dioxide 16.4 L (20.0-27.5) mmol/L BUN 27.2 H (9.0-27.0) mg/dL BUN/Creatinine Ratio 27.20 H (12.00-20.00) Ratio Glucose 223 H (70-110) mg/dL POC Glucose (mg/dL) 230 H (75-99) mg/dL Total Bilirubin <0.15 L (0.30-1.20) mg/dL Albumin/Globulin Ratio 1.58 L (1.60-3.17) g/dL 11/12/21 11/12/21 11/12/21 Range/Units 15:03 17:07 20:16 Hct (39.6-50.0) % Eosinophils # (0.04-0.35) X 10*3/uL Sodium (135-145) mmol/L Carbon Dioxide (20.0-27.5) mmol/L BUN (9.0-27.0) mg/dL BUN/Creatinine Ratio (12.00-20.00) Ratio Glucose (70-110) mg/dL POC Glucose (mg/dL) 229 H 161 H 214 H (75-99) mg/dL Total Bilirubin (0.30-1.20) mg/dL Albumin/Globulin Ratio (1.60-3.17) g/dL 11/13/21 Range/Units 06:16 Hct (39.6-50.0) % Eosinophils # (0.04-0.35) X 10*3/uL Sodium (135-145) mmol/L Carbon Dioxide (20.0-27.5) mmol/L BUN (9.0-27.0) mg/dL BUN/Creatinine Ratio (12.00-20.00) Ratio Glucose (70-110) mg/dL POC Glucose (mg/dL) 156 H (75-99) mg/dL Total Bilirubin (0.30-1.20) mg/dL Albumin/Globulin Ratio (1.60-3.17) g/dL
[2021-11-13] MEDS ORDERED: ACETAMINOPHEN TAB 325 MG TAB PO PRN (11:54)
[2021-11-13] MEDS: NITROGLYCERIN-D5W PMX 50 MG in DEXTROSE/WATER 1 250ML.BAG IV SCH (15:47)
[2021-11-13 16:01] LABS: Glucose,Whole Blood 196 mg/dL (75-99)
[2021-11-13 16:58] VITALS: BP 121/73; PULSE 67; TEMP 97.3
--- NOTE | 2021-11-13 18:23 | P.DS ---
Providers Date of admission: 11/12/21 14:54 Expected date of discharge: 11/13/21 Attending physician: Jamal Pringle Consults: 11/11/21 15:14 Consult Physician Routine Consulting Provider: Rachel Barnes Consult Reason/Comments: chest pain Do you want consulting provider notified?: Yes 11/12/21 14:54 Consult Physician Routine Consulting Provider: Rachel Barnes Consult Reason/Comments: Post Interventional patient Do you want consulting provider notified?: Already Contacted Primary care physician: [facility] [facility] Course: Chief Complaint: Chest pain This is a pleasant 66-year-old patient, with chronic stable medical conditions include diabetes mellitus, hyperlipidemia, Parkinson's., Schizophrenia, anxiety depression. baseline is unsteady on his gait. Has to hold onto things. 10/30/2021: angioplasty stenting to proximal LAD with a DONNA. Also has circumflex 60-70% stenosis the latter which is to be treated medically. Was discharged Now for 3-4 days patient with having central chest pain coming on and off for failure variable duration. Like a pressure. No radiation. Some associated dizziness shortness of breath. No obvious precipitating or relieving factor. Troponins were negative. No specific findings on the EKG. Admitted unstable angina. Started IV heparin. This afternoon patient was taken down for cardiac catheterization by Dr. Luna. Formal report is not out but patient apparently had a stent of the LAD and circumflex. Postprocedure patient still having chest pain. Was put on a nitroglycerin drip. Patient now chest pain-free. November 13: Patient doing well. Seen by cardiology. Cleared to go home. No chest pain or shortness of breath. Past medical history to include: Diabetes, hyperlipidemia, anxiety, depression, schizophrenia, Parkinson's, CAD with stent to LAD Social history: Lives alone. Retired from [employer]. No history of smoking or alcohol. Family history: Reviewed, noncontributory to presentation Physical examination: VITAL SIGNS: 97.3, 67, 16, 121/73, 97% room air GENERAL: BMI 25.1, laying in bed, awake, comfortable EYES: Pupils equal. Conjunctiva normal. HEENT: External appearance of nose and ears normal, oral cavity grossly normal. NECK: JVD not raised; masses not palpable. HEART: First and second heart sounds are normal; no edema. LUNGS: Respiratory rate normal; clear to auscultation. ABDOMEN: Soft, nontender, liver spleen not palpable, no masses palpable. PSYCH: Alert and oriented x3; mood and affect normal. MUSCULOSKELETAL:No Clubbing/cyanosis;muscles-grossly intact INVESTIGATIONS, reviewed in the clinical context: November 13: White count 3.5 hemoglobin 13 potassium 3.9 creatinine 0.89 White count 6.7 Hemoglobin 13.2 platelets 195 potassium 4.1 creatinine 1.0 Troponin I 3 negative Coronavirus [PCR]: Not detected EKG tracing personally reviewed by me-normal sinus rhythm. Chest x-ray film personally reviewed by me: Unremarkable Assessment and plan: -Unstable angina in a patient with recent stent of the LAD and disease on the circumflex cardiac catheterization with a stent to LAD and circumflex IV heparin monitoring -CAD with stent to LAD, circumflex Aspirin, Lipitor, Effient, Lopressor -IV heparin monitoring: Discontinued Follow PTT -Hyperlipidemia Lipitor 80 mg daily at bedtime -Diabetes mellitus type 2 Actos 50 mg daily. metformin-hold. Accu-Cheks and sliding scale insulin -Idiopathic Parkinson's disease Mirapex 0.5 mg by mouth 3 times a day -Schizophrenia Abilify 5 mg a day -Depression not otherwise specified Zoloft 100 mg daily Disposition: Home Plan - Discharge Summary Discharge Rx Participant: No New Discharge Prescriptions: Continue metFORMIN HCL 500 mg PO BID-W/MEALS ARIPiprazole [Abilify] 5 mg PO DAILY Metoprolol Tartrate [Lopressor] 25 mg PO BID #60 tablet Atorvastatin [Lipitor] 80 mg PO DAILY Sertraline [Zoloft] 100 mg PO DAILY Pramipexole [Mirapex] 0.5 mg PO TID Pioglitazone [Actos] 15 mg PO DAILY Losartan Potassium 50 mg PO DAILY Prasugrel [Effient] 10 mg PO DAILY 30 Days #30 tab Aspirin 81 mg PO DAILY 30 Days #30 tab Nitroglycerin Sl Tabs [Nitrostat] 0.4 mg SUBLINGUAL Q5M PRN #30 tab PRN Reason: Chest Pain Discharge Medication List ARIPiprazole [Abilify] 5 mg PO DAILY 10/29/21 [History] Losartan Potassium 50 mg PO DAILY 10/29/21 [History] Pioglitazone [Actos] 15 mg PO DAILY 10/29/21 [History] Pramipexole [Mirapex] 0.5 mg PO TID 10/29/21 [History] Sertraline [Zoloft] 100 mg PO DAILY 10/29/21 [History] metFORMIN HCL 500 mg PO BID-W/MEALS 10/29/21 [History] Aspirin 81 mg PO DAILY 30 Days #30 tab 10/31/21 [Rx] Metoprolol Tartrate [Lopressor] 25 mg PO BID #60 tablet 10/31/21 [Rx] Nitroglycerin Sl Tabs [Nitrostat] 0.4 mg SUBLINGUAL Q5M PRN #30 tab 10/31/21 [Rx] Prasugrel [Effient] 10 mg PO DAILY 30 Days #30 tab 10/31/21 [Rx] Atorvastatin [Lipitor] 80 mg PO DAILY 11/11/21 [History] Follow up Appointment(s)/Referral(s): Toni Chan NPC [REFERRING] - 11/18/21 1:00 pm Lior Cherry MD [STAFF PHYSICIAN] - 11/17/21 2:15 pm ([place] [facility]. ) Patient Instructions/Handouts: *Surgery [facility] - After Heart Catheterization - Home Health Care Case Manager Instructions, Angina (DC), After Radial Heart Catheterization (GEN) Activity/Diet/Wound Care/Special Instructions: NO metformin for 48 hours post stent. Discharge Disposition: HOME SELF-CARE
== END 2021-11-13 16:55 | disposition home or self-care (01) ==
LOC: EC 12:18 → 6NMEDSUR 15:14 → INTOOBSV 11-12 14:54 → OBSVTOIN 11-12 14:54 → 3SCARD 11-12 15:03 → UNDODISIN 11-13 16:55
PROVIDERS: ADMIT Hospitalist; ATTEND Hospitalist
DX: I25.110 Atherosclerotic heart disease of native coronary artery with unstable angina pectoris (principal); E11.9 Type 2 diabetes mellitus without complications; E78.5 Hyperlipidemia, unspecified; Z20.822 Contact with and (suspected) exposure to COVID-19; I10 Essential (primary) hypertension; I45.10 Unspecified right bundle-branch block; F20.9 Schizophrenia, unspecified; R26.81 Unsteadiness on feet; G20 Parkinson's disease; F02.80 Dementia in other diseases classified elsewhere, unspecified severity, without behavioral disturbance, psychotic disturbance, mood disturbance, and anxiety; F32.A Depression, unspecified; F41.9 Anxiety disorder, unspecified; Z79.02 Long term (current) use of antithrombotics/antiplatelets; Z79.82 Long term (current) use of aspirin; Z79.84 Long term (current) use of oral hypoglycemic drugs; Z79.899 Other long term (current) drug therapy; Z87.891 Personal history of nicotine dependence; Z95.5 Presence of coronary angioplasty implant and graft
CPT/HCPCS: 93458; 92979; 92978; 99285; 96376; 96365; 96366; 96361; 96372; 96375; 36415; 93005; 93571; 93572; 85379; 80053 ×2; 80048; 83735; 84484; 85025 ×3; 85610; 85730 ×2; 87635; 71046; G0378 ×4; C9600; C1769 ×2; C1887; C1894; C1725 ×2; C1874 ×2; G0480; J2250; J2270; J2405; J2001; J3010; J1644 ×3; J0153; J2370; J3246; Q9967 ×2; 80320; 96374